=== PATIENT | female | born 1960 | race Hispanic/Latino ===

== ENCOUNTER 2017-08-04 06:32 | Emergency (ER) | payer BC ==
[2017-08-04 06:42] VITALS: BMI 20.4
[2017-08-04] MEDS ORDERED: Sodium Chloride 0.9% 1,000 ML IV STA (07:22)
--- NOTE | 2017-08-04 07:28 | ED PDOC ---
HPI: Headache Time Seen by Provider: 08/04/17 07:10 Chief Complaint (Nursing): Headache History Per: Patient Onset/Duration Of Symptoms: Days (10) Current Symptoms Are (Timing): Still Present Severity: Moderate Pain Scale Rating Of: 5 Quality: Aching Preceeding Symptoms: Known Migraine Symptoms Associated Symptoms: Photophobia, Nausea Additional Complaint(s): Post headache x 10 days assoc with nausea and photophobia. Denies trauma or fever. H/o migraine. No improvement with Imitrex and toradol. Seen [facility] last week with no improvement Past Medical History Vital Signs: Last Vital Signs Temp 98.3 F 08/04/17 06:54 Pulse 84 08/04/17 06:54 Resp 16 08/04/17 06:54 BP 122/74 08/04/17 06:54 Pulse Ox 98 08/04/17 06:54 - Medical History PMH: Migraine - Family History Family History: States: Unknown Family Hx - Home Medications Home Medications: Ambulatory Orders Medication Instructions Recorded Naproxen [Naprosyn] 500 mg PO Q12H #20 tab 08/04/17 - Allergies Allergies/Adverse Reactions: Allergies Allergy/AdvReac Type Severity Reaction Status Date / Time Penicillins Allergy ANAPHYLAXIS Verified 08/04/17 07:00 Review of Systems ROS Statement: Except As Marked, All Systems Reviewed And Found Negative Gastrointestinal: Positive for: Nausea Neurological: Positive for: Headache Physical Exam - Reviewed Nursing Documentation Reviewed: Yes Vital Signs Reviewed: Yes - Physical Exam Appears: Positive for: Non-toxic, No Acute Distress Head Exam: Positive for: ATRAUMATIC, NORMAL INSPECTION, NORMOCEPHALIC Skin: Positive for: Normal Color, Warm, DRY Eye Exam: Positive for: EOMI, Normal appearance, PERRL ENT: Positive for: Normal ENT Inspection Neck: Positive for: Normal, Painless ROM Cardiovascular/Chest: Positive for: Regular Rate, Rhythm Respiratory: Positive for: CNT, Normal Breath Sounds Gastrointestinal/Abdominal: Positive for: Normal Exam, Soft Back: Positive for: Normal Inspection Extremity: Positive for: Normal ROM Neurologic/Psych: Positive for: Alert, Oriented. Negative for: Motor/Sensory Deficits - Laboratory Results Result Diagrams: 08/04/17 07:58 08/04/17 07:58 - ECG O2 Sat by Pulse Oximetry: 98 - Progress Re-evaluation Time: 10:25 Condition: Improved Disposition - Clinical Impression Clinical Impression: Migraine - Patient ED Disposition Is Patient to be Admitted: No - Disposition Referrals: He Dixon MD [Medical Doctor] - Disposition: Routine/Home Disposition Time: 10:26 Condition: FAIR Prescriptions: Naproxen [Naprosyn] 500 mg PO Q12H #20 tab Instructions: Migraine Headache (DC) Forms: [facility] (Hungarian)
[2017-08-04 08:01] LABS: BASO % 0.2 % (0.0-2.0); EOS % 0.1 % (0.0-4.0); HEMOGLOBIN 14.2 g/dL (12.0-16.0); LYMPH # 2.9 K/uL (1.0-4.3); LYMPH % 23.7 % (20.0-40.0); MEAN CELL VOLUME 93.9 fl (81.0-99.0); MEAN CORPUSCULAR HEMOGLOBIN 31.1 pg (27.0-31.0); MEAN CORPUSCULAR HGB CONC 33.2 g/dL (33.0-37.0); MEAN PLATELET VOLUME 8.8 fl (7.2-11.7); MONO # 0.8 K/uL (0.0-0.8); MONO % 6.8 % (0.0-10.0); NEUT # 8.4 K/uL (1.8-7.0); NEUT % 69.2 % (50.0-75.0); NRBC % 0.1 % (0.0-0.0); RBC 4.55 Mil/uL (3.80-5.20); RED CELL DISTRIBUTION WIDTH 13.9 % (11.5-14.5); WHITE BLOOD COUNT 12.1 K/uL (4.8-10.8)
[2017-08-04 08:11] LABS: ALB/GLOB RATIO 1.3 (1.0-2.1); ALBUMIN 4.5 g/dL (3.5-5.0); ALT/SGPT 34 U/L (9-52); AST/SGOT 30 U/L (14-36); BLOOD UREA NITROGEN 19 mg/dl (7-17); CALCIUM 9.1 mg/dL (8.4-10.2); GFR AFRICAN-AMERICAN > 60; GFR NON-AFRICAN AMERICAN > 60
[2017-08-04] MEDS ORDERED: Potassium Chloride 20 mEq ER Tab PO ONE ×2 (08:20→09:43)
--- NOTE | 2017-08-04 08:32 | CT ---
PROCEDURE: CT HEAD WITHOUT CONTRAST. HISTORY: r/o bleed COMPARISON: None available. TECHNIQUE: Axial computed tomography images were obtained through the head/brain without intravenous contrast. Radiation dose: Total exam DLP = 705.53 mGy-cm. This CT exam was performed using one or more of the following dose reduction techniques: Automated exposure control, adjustment of the mA and/or kV according to patient size, and/or use of iterative reconstruction technique. FINDINGS: HEMORRHAGE: No intracranial hemorrhage. BRAIN: No mass effect or edema. No atrophy or chronic microvascular ischemic changes. VENTRICLES: Unremarkable. No hydrocephalus. CALVARIUM: Unremarkable. PARANASAL SINUSES: Unremarkable as visualized. No significant inflammatory changes. MASTOID AIR CELLS: Unremarkable as visualized. No inflammatory changes. OTHER FINDINGS: None. IMPRESSION: Normal CT of the Head. No acute intracranial hemorrhage.
[2017-08-04 10:41] VITALS: BP 128/70; PULSE 73; RESP 18; TEMP 98.5; O2SAT 97
== END 2017-08-04 10:42 | disposition home or self-care (01) ==
LOC: H.ER 06:32
DX: G43.909 Migraine, unspecified, not intractable, without status migrainosus (principal); Z88.0 Allergy status to penicillin
CPT/HCPCS: 70450; 80053; 85025; 96372; 96374; 96375; 99285; J1885; J2405; J3030; J7030

== ENCOUNTER 2017-08-05 09:45 | Emergency (ER) | payer BC ==
[2017-08-05 09:45] VITALS: BMI 20.4
[2017-08-05] MEDS: Sodium Chloride 0.9% 1,000 ML IV STA (10:42)
[2017-08-05] MEDS ORDERED: Alum-Mag Hydrox-Simethicone Susp (30 mL) ONE (10:53)
[2017-08-05 10:59] LABS: BASO % 0.3 % (0.0-2.0); EOS % 0.4 % (0.0-4.0); HEMOGLOBIN 13.7 g/dL (12.0-16.0); LYMPH # 2.9 K/uL (1.0-4.3); MEAN CELL VOLUME 92.6 fl (81.0-99.0); MEAN CORPUSCULAR HEMOGLOBIN 31.7 pg (27.0-31.0); MEAN CORPUSCULAR HGB CONC 34.3 g/dL (33.0-37.0); MEAN PLATELET VOLUME 8.4 fl (7.2-11.7); MONO # 0.6 K/uL (0.0-0.8); MONO % 5.6 % (0.0-10.0); NEUT # 7.1 K/uL (1.8-7.0); NEUT % 66.7 % (50.0-75.0); RBC 4.3 Mil/uL (3.80-5.20); RED CELL DISTRIBUTION WIDTH 13.9 % (11.5-14.5); WHITE BLOOD COUNT 10.6 K/uL (4.8-10.8)
[2017-08-05] MEDS: Atrop/Hyos/Scop/PhenoB Elixir PO STA (11:09)
[2017-08-05] MEDS: Alum-Mag Hydrox-Simethicone Susp (30 mL) PO STA (11:10)
[2017-08-05 11:16] LABS: ALB/GLOB RATIO 1.3 (1.0-2.1); ALT/SGPT 30 U/L (9-52); AST/SGOT 30 U/L (14-36); BLOOD UREA NITROGEN 13 mg/dl (7-17); GFR AFRICAN-AMERICAN > 60; GFR NON-AFRICAN AMERICAN > 60
--- NOTE | 2017-08-05 12:53 | ED PDOC ---
HPI: Abdomen <Elias Hinkle III - Last Filed: 08/05/17 15:03> Chief Complaint (Provider): Epigastric abdominal pain since this morning History Per: Patient History/Exam Limitations: no limitations Onset/Duration Of Symptoms: Days Outside of [place] travel?: No Current Symptoms Are (Timing): Still Present Location Of Pain/Discomfort: Epigastric Quality Of Discomfort: Burning Associated Symptoms: denies: Fever, Chills, Nausea, Vomiting, Loss Of Appetite Exacerbating Factors: None Alleviating Factors: None <Nimco Browning - Last Filed: 08/05/17 15:11> Time Seen by Provider: 08/05/17 10:13 Chief Complaint (Nursing): Abdominal Pain Additional Complaint(s): 57 yo female with history of migraine and gastric ulcer presents with epigastric pain after taking naproxen last night. Pt was seen in ER last night for migraine. Pt states when she left she was feeling better. Pt states she was told to take the naproxen and zofran before bed even is she was not having headache. Pt states she woke up with epigastric burning. PT states the last few days she has been having some discomfort. Pt states it is not as bad as when she was diagnosed with gastric ulcer. Pt reports light brown stool. Pt states she does not have GI doctor any more. Pt denies fever/chills. Pt states her migraine also returned this morning and is the same as when she was in the ER yesterday. (Nimco Browning) Past Medical History <Elias Hinkle III - Last Filed: 08/05/17 15:03> Reviewed: Historical Data, Nursing Documentation, Vital Signs - Medical History PMH: Migraine Denies: Chronic Kidney Disease - Surgical History Surgical History: No Surg Hx - Family History Family History: States: Unknown Family Hx - Living Arrangements Living Arrangements: With Family - Social History Current smoker - smoking cessation education provided: No <Nimco Browning - Last Filed: 08/05/17 15:11> Vital Signs: Last Vital Signs Temp 97.9 F 08/05/17 15:08 Pulse 76 08/05/17 15:08 Resp 17 08/05/17 15:08 BP 119/67 08/05/17 15:08 Pulse Ox 100 08/05/17 15:08 - Home Medications Home Medications: Ambulatory Orders Medication Instructions Recorded Naproxen [Naprosyn] 500 mg PO Q12H #20 tab 08/04/17 Ondansetron [Zofran] 4 mg PO Q8H #10 tab 08/04/17 Metoclopramide [Reglan] 10 mg PO Q8 PRN #8 tab 08/05/17 - Allergies Allergies/Adverse Reactions: Allergies Allergy/AdvReac Type Severity Reaction Status Date / Time Penicillins Allergy ANAPHYLAXIS Verified 08/04/17 07:00 Review of Systems ROS Statement: Except As Marked, All Systems Reviewed And Found Negative Constitutional: Negative for: Fever, Chills Gastrointestinal: Positive for: Abdominal Pain. Negative for: Nausea, Vomiting , Diarrhea Neurological: Positive for: Headache <Nimco Browning - Last Filed: 08/05/17 15:11> - Laboratory Results Result Diagrams: 08/05/17 10:51 08/05/17 10:51 <Elias Hinkle III - Last Filed: 08/05/17 15:03> - Laboratory Results Result Diagrams: 08/05/17 10:51 08/05/17 10:51 - ECG O2 Sat by Pulse Oximetry: 97 <Nimco Browning - Last Filed: 08/05/17 15:11> Medical Decision Making <Elias Hinkle III - Last Filed: 08/05/17 15:03> <Nimco Browning - Last Filed: 08/05/17 15:11> Medical Decision Making: pt seen and examined by MD Long discussion on risks/benefits of further diagnostics including MRI/CTA/LP States she would like to avoid and trial imitrex one more time. tylenol also ordered and additional IVF. re-eval 3p improved, denies current headache. Risk of LP now > low likelihood of SAH given headache now 9 days, no other neurologic signs, improvement w conservative measures and long history of similar migranes. I called her neurologist Dr Quigley at [facility] to discuss, message left, awaiting callback. She refused MRI without sedation due to claustrophobia and prefers open MRI will arrange w neurologist. 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 She will stay with her friend who is a RN sen. Neuro exam grossly normal on discharge from ED. (Elias Hinkle III) Discussed with Dr. Hinkle. Labs ordered. GI cocktail with decadron and Depakote for migraine. (iNmco Browning) Disposition <Elias Hinkle III - Last Filed: 08/05/17 15:03> - Disposition Disposition Time: 15:01 <Nimco Browning - Last Filed: 08/05/17 15:11> - Clinical Impression Clinical Impression: Migraine - Disposition Referrals: Reji Trejo MD [Staff Provider] - Arnulfo Nelson MD [Staff Provider] - Condition: STABLE Additional Instructions: See neurologist and GI doctor for further testing. Return to ER for any worse or new symptoms. Discuss value of sleep study with your doctor or specialist. Prescriptions: Metoclopramide [Reglan] 10 mg PO Q8 PRN #8 tab PRN Reason: Nausea/Vomiting Instructions: Headache, Adult, Migraine Headaches in Adults Forms: [facility] (Yi)
[2017-08-05] MEDS: Lactated Ringer's 1,000 ML IV ONE (13:48)
[2017-08-05 15:10] VITALS: BP 119/67; PULSE 76; RESP 17; TEMP 97.9
[2017-08-05 15:12] VITALS: O2SAT 97
== END 2017-08-05 15:08 | disposition home or self-care (01) ==
LOC: H.ER 09:45
DX: G43.909 Migraine, unspecified, not intractable, without status migrainosus (principal); R10.13 Epigastric pain; Z88.0 Allergy status to penicillin
CPT/HCPCS: 80053; 83690; 85025; 96372; 96374; 96375; 99283; C9113; J1100; J1885; J3030; J7030; J7120

== ENCOUNTER 2017-08-12 17:18 | Observation (INO) | payer BC ==
[2017-08-12 17:18] VITALS: BMI 20.4
[2017-08-12] MEDS ORDERED: Sodium Chloride 0.9% 1,000 ML IV STA (18:31)
--- NOTE | 2017-08-12 18:39 | ED PDOC ---
HPI: Headache Time Seen by Provider: 08/12/17 18:19 Chief Complaint (Nursing): Abdominal Pain History Per: Patient Onset/Duration Of Symptoms: Persistent Current Symptoms Are (Timing): Intermittent Episodes Severity: Moderate Preceeding Symptoms: Known Migraine Symptoms. denies: Visual Disturbances Associated Symptoms: Nausea. denies: Photophobia, Blurred Vision Additional Complaint(s): Recurring episodes of headaches improves with tx in ED but recurs subsequently. Has been seen by neurologists and has been tx'ed with multiple medications. Now c/o epigastric pain assoc with nausea. No vomiting but decreased apatite. Denies fever, or head injury. No peripheral focal weakness. Past Medical History Vital Signs: Last Vital Signs Temp 97.1 F L 08/12/17 18:26 Pulse 66 08/12/17 18:26 Resp 17 08/12/17 18:26 BP 124/71 08/12/17 18:26 Pulse Ox 100 08/12/17 18:26 - Medical History PMH: Migraine Denies: Chronic Kidney Disease - Family History Family History: States: Unknown Family Hx - Home Medications Home Medications: Ambulatory Orders Medication Instructions Recorded Naproxen [Naprosyn] 500 mg PO Q12H #20 tab 08/04/17 Ondansetron [Zofran] 4 mg PO Q8H #10 tab 08/04/17 Metoclopramide [Reglan] 10 mg PO Q8 PRN #8 tab 08/05/17 - Allergies Allergies/Adverse Reactions: Allergies Allergy/AdvReac Type Severity Reaction Status Date / Time Penicillins Allergy ANAPHYLAXIS Verified 08/04/17 07:00 Review of Systems Constitutional: Positive for: Weight loss. Negative for: Fever Eyes: Negative for: Vision Change Gastrointestinal: Positive for: Nausea, Abdominal Pain Musculoskeletal: Negative for: Neck Pain Neurological: Positive for: Headache. Negative for: Weakness, Numbness Physical Exam - Physical Exam Appears: Positive for: Non-toxic, No Acute Distress Skin: Positive for: Normal Color, Warm, DRY Eye Exam: Positive for: Normal appearance, EOMI Neck: Positive for: Normal, Painless ROM, Supple Gastrointestinal/Abdominal: Positive for: Bowel Sounds, Soft, Tenderness (Mild epigastric) Neurologic/Psych: Positive for: Alert, Oriented. Negative for: Motor/Sensory Deficits - Laboratory Results Result Diagrams: 08/12/17 19:00 08/12/17 19:00 - ECG O2 Sat by Pulse Oximetry: 100 Disposition - Clinical Impression Clinical Impression: Intractable migraine, Hypokalemia - Patient ED Disposition Is Patient to be Admitted: Yes - Disposition Disposition Time: 21:06 Condition: FAIR Forms: [facility] (Uzbek) - Pt Status Changed To: Hospital Disposition Of: Observation - POA Present On Arrival: None
[2017-08-12] MEDS ORDERED: Famotidine 20mg/50ml 20 MG/50 ML BAG IVPB ONE (18:50)
[2017-08-12 19:12] LABS: BASO # 0.1 K/uL (0.0-0.2); BASO % 0.6 % (0.0-2.0); EOS # 0.1 K/uL (0.0-0.7); EOS % 0.9 % (0.0-4.0); HEMOGLOBIN 14.1 g/dL (12.0-16.0); LYMPH # 3.1 K/uL (1.0-4.3); LYMPH % 27.3 % (20.0-40.0); MEAN CELL VOLUME 93.9 fl (81.0-99.0); MEAN CORPUSCULAR HEMOGLOBIN 31.4 pg (27.0-31.0); MEAN CORPUSCULAR HGB CONC 33.4 g/dL (33.0-37.0); MEAN PLATELET VOLUME 8.3 fl (7.2-11.7); MONO # 0.9 K/uL (0.0-0.8); MONO % 8.1 % (0.0-10.0); NEUT # 7.2 K/uL (1.8-7.0); NEUT % 63.1 % (50.0-75.0); RBC 4.49 Mil/uL (3.80-5.20); RED CELL DISTRIBUTION WIDTH 14.2 % (11.5-14.5); WHITE BLOOD COUNT 11.5 K/uL (4.8-10.8)
[2017-08-12 19:31] LABS: ALB/GLOB RATIO 1.5 (1.0-2.1); ALBUMIN 4.4 g/dL (3.5-5.0); ALT/SGPT 39 U/L (9-52); AST/SGOT 22 U/L (14-36); BLOOD UREA NITROGEN 7 mg/dl (7-17); CALCIUM 8.9 mg/dL (8.4-10.2); GFR AFRICAN-AMERICAN > 60; GFR NON-AFRICAN AMERICAN > 60
[2017-08-12] MEDS ORDERED: Potassium Chloride 20 mEq ER Tab PO ONE ×2 (20:49→21:04)
[2017-08-12] MEDS ORDERED: Apap-Butalbital-Caffeine 325-50-40mg Tab PO PRN (23:26)
[2017-08-13] MEDS: Alum-Mag Hydrox-Simethicone Susp (30 mL) PO PRN ×2 (00:25→04:37)
[2017-08-13 05:47] LABS: HEMOGLOBIN 13.2 g/dL (12.0-16.0); MEAN CELL VOLUME 94.6 fl (81.0-99.0); MEAN CORPUSCULAR HEMOGLOBIN 31.5 pg (27.0-31.0); MEAN CORPUSCULAR HGB CONC 33.3 g/dL (33.0-37.0); RBC 4.2 Mil/uL (3.80-5.20); WHITE BLOOD COUNT 10.5 K/uL (4.8-10.8)
[2017-08-13 06:07] LABS: LDL CHOLESTEROL 61 mg/dL (0-129)
[2017-08-13 06:12] LABS: T4 11.7 ug/dl (5.5-11.0)
[2017-08-13 06:36] LABS: ALB/GLOB RATIO 1.4 (1.0-2.1); ALBUMIN 3.8 g/dL (3.5-5.0); ALT/SGPT 38 U/L (9-52); AST/SGOT 20 U/L (14-36); BLOOD UREA NITROGEN 7 mg/dl (7-17); CALCIUM 8.2 mg/dL (8.4-10.2); GFR AFRICAN-AMERICAN > 60; GFR NON-AFRICAN AMERICAN > 60; HDL CHOLESTEROL 52 MG/DL (30-70)
[2017-08-13] MEDS ORDERED: Pneumococcal 23-Valent Vaccine IM ONE (07:00)
[2017-08-13] MEDS ORDERED: Magnesium Sulfate 2 gm/50 ml 2 GM/50 ML BAG IVPB ONE (08:59)
[2017-08-13] MEDS ORDERED: Dexamethasone 10 MG in Dextrose 5% In Water 50 ML IV ONE (09:00)
[2017-08-13] MEDS ORDERED: Valproate 500 MG in Sodium Chloride 0.9% 100 ML IVPB ONE (09:00)
--- NOTE | 2017-08-13 09:45 | CARD ---
APPROVED REPORT EKG Measurement Heart [id number] <Conclusion> Sinus rhythm with short OR Otherwise normal ECG
--- NOTE | 2017-08-13 13:18 | CP.PCM.CON ---
<Mile Maier - Last Filed: 08/13/17 13:14> History of Present Illness - History of Present Illness History of Present Illness: Gastroenterology Fellow/PGY5 Consult Note for Dr. Soto 57 year old female with PMH of Lobular carcinoma in situ, migraines (20 years) on NSAIDs/triptans, and PUD thirty years ago presenting with epigastric pain. Patient notes onset of epigastric pain described as a dull ache and nagging sensation on 08/04/17 after taking two days of medrol ulises prescribed for persistent migraine despite use of triptan, naproxen, and extra strength tylenol since 07/28/17. Associated loss of appetite with six pound unintentional weight loss since 07/28/17. Denies nausea, vomiting, hematemesis, dysphagia, odynophagia, heartburn, indigestion, acid reflux, bloating, diarrhea, constipation, melena, or hematochezia. Patient presented to ER on 08/04 and 08/05 with no relief from reglan prescribed. Patient notes mild relief for the last week with use of Prilosec BID (before breakfast and dinner) and carafate TID prescribe by her neurologist. Epigastric pain rated at 5/10 from 8/10 since taking outpatient anti-secretory and carafate. Patient deniesssss gastrointestional symptoms prior to migraine onset and use of multiple medications for attempted relief since 07/28/17. Similar symptoms 30 years ago relieved with carafate after endorsed diagnosis of gastric ulcer on EGD. Colonoscopy in 2016 endorsed to show polyps with recommended five year surveillance. Family History: denies stomach cancer, colon cancer Social History: denies tobacco or illicit drug use, prior vicodin abuse, rare alcohol use Surgical History: myomectomy, breast biopsies and excisions Review of Systems - Review of Systems Review of Systems: 12-point review of systems negative except for as above Past Patient History - Past Medical History & Family History Past Medical History?: Yes - Past Social History Smoking Status: Never Smoked - CARDIAC Hx Cardiac Disorders: No - PULMONARY Hx Respiratory Disorders: Yes Hx Asthma: Yes ("SEASONAL") - NEUROLOGICAL Hx Neurological Disorder: Yes Hx Migraine: Yes - HEENT Hx HEENT Problems: No - RENAL Hx Chronic Kidney Disease: No - ENDOCRINE/METABOLIC Hx Endocrine Disorders: No - HEMATOLOGICAL/ONCOLOGICAL Hx Blood Disorders: No - INTEGUMENTARY Hx Dermatological Problems: No - MUSCULOSKELETAL/RHEUMATOLOGICAL Hx Musculoskeletal Disorders: No Hx Falls: No - GASTROINTESTINAL Hx Gastrointestinal Disorders: No - GENITOURINARY/GYNECOLOGICAL Hx Genitourinary Disorders: No - PSYCHIATRIC Hx Psychophysiologic Disorder: No Hx Substance Use: No - SURGICAL HISTORY Hx Surgeries: Yes Other/Comment: Uterine fibroid removal, Laparotomy, Multiple breast cyst removal - ANESTHESIA Hx Anesthesia: Yes Hx Anesthesia Reactions: No Hx Malignant Hyperthermia: No Meds Allergies/Adverse Reactions: Allergies Allergy/AdvReac Type Severity Reaction Status Date / Time Penicillins Allergy ANAPHYLAXIS Verified 08/04/17 07:00 - Medications Medications: Current Medications Acetaminophen/Butalbital/Caffeine (Fioricet) 1 tab PO Q4 PRN PRN Reason: Headache Last Admin: 08/13/17 00:25 Dose: 1 tab Al Hydrox/Mg Hydrox/Simethicone (Maalox Plus 30 Ml) 30 ml PO Q4 PRN PRN Reason: Indigestion / Heartburn Last Admin: 08/13/17 04:37 Dose: 30 ml Dicyclomine HCl (Bentyl) 20 mg PO TID PRN PRN Reason: Epigastric Pain Last Admin: 08/13/17 00:25 Dose: 20 mg Magnesium Oxide (Mag-Ox) 400 mg PO BID [facility] Ondansetron HCl (Zofran Inj) 4 mg IVP Q4 PRN PRN Reason: Nausea/Vomiting Pantoprazole Sodium (Protonix Inj) 40 mg IVP DAILY FLORENCIO Last Admin: 08/13/17 08:40 Dose: 40 mg Physical Exam - Constitutional Appears: Non-toxic, No Acute Distress - Head Exam Head Exam: ATRAUMATIC, NORMOCEPHALIC - Eye Exam Eye Exam: EOMI, PERRL. absent: Scleral icterus Pupil Exam: PERRL. absent: Miosis, Mydriatic - ENT Exam ENT Exam: Mucous Membranes Moist, Normal Oropharynx - Neck Exam Neck exam: Positive for: Full Rom, Normal Inspection - Respiratory Exam Respiratory Exam: Clear to Auscultation Bilateral. absent: Rales, Rhonchi, Wheezes - Cardiovascular Exam Cardiovascular Exam: RRR, +S1, +S2. absent: Gallop, Rubs - GI/Abdominal Exam GI & Abdominal Exam: Normal Bowel Sounds, Soft, Tenderness. absent: Distended, Firm, Guarding, Organomegaly, Rebound, Rigid Additional comments: epigastric tenderness to palpation - Extremities Exam Extremities exam: Positive for: normal inspection. Negative for: pedal edema - Neurological Exam Neurological exam: Alert, Oriented x3 - Psychiatric Exam Psychiatric exam: Normal Affect, Normal Mood - Skin Skin Exam: Dry, Intact, Normal Color, Warm Results - Vital Signs Recent Vital Signs: Last Vital Signs Temp 98 F 08/13/17 12:27 Pulse 72 08/13/17 12:27 Resp 18 08/13/17 12:27 BP 110/71 08/13/17 12:27 Pulse Ox 97 08/13/17 12:27 - Labs Result Diagrams: 08/13/17 05:33 08/13/17 05:33 Labs: Laboratory Results - last 24 hr 08/12/17 08/12/17 08/13/17 19:00 19:00 05:33 WBC 11.5 H 10.5 RBC 4.49 4.20 Hgb 14.1 13.2 Hct 42.1 39.7 MCV 93.9 94.6 MCH 31.4 H 31.5 H MCHC 33.4 33.3 RDW 14.2 14.0 Plt Count 226 200 MPV 8.3 Neut % (Auto) 63.1 Lymph % (Auto) 27.3 [place] % (Auto) 8.1 Eos % (Auto) 0.9 Baso % (Auto) 0.6 Neut # (Auto) 7.2 H Lymph # (Auto) 3.1 [place] # (Auto) 0.9 H Eos # (Auto) 0.1 Baso # (Auto) 0.1 ESR 10 Sodium 141 Potassium 2.9 L Chloride 103 Carbon Dioxide 27 Anion Gap 14 BUN 7 Creatinine 0.4 L Est GFR ( Amer) > 60 Est GFR (Non-Af Amer) > 60 Random Glucose 101 Calcium 8.9 Total Bilirubin 0.7 AST 22 ALT 39 Alkaline Phosphatase 54 Total Protein 7.3 Albumin 4.4 Globulin 2.9 Albumin/Globulin Ratio 1.5 Triglycerides Cholesterol LDL Cholesterol Direct HDL Cholesterol Thyroxine (T4) TSH 3rd Generation 08/13/17 05:33 WBC RBC Hgb Hct MCV MCH MCHC RDW Plt Count MPV Neut % (Auto) Lymph % (Auto) [place] % (Auto) Eos % (Auto) Baso % (Auto) Neut # (Auto) Lymph # (Auto) [place] # (Auto) Eos # (Auto) Baso # (Auto) ESR Sodium 142 Potassium 3.7 Chloride 107 Carbon Dioxide 27 Anion Gap 12 BUN 7 Creatinine 0.4 L Est GFR ( Amer) > 60 Est GFR (Non-Af Amer) > 60 Random Glucose 91 Calcium 8.2 L Total Bilirubin 0.7 AST 20 ALT 38 Alkaline Phosphatase 43 Total Protein 6.4 Albumin 3.8 Globulin 2.6 Albumin/Globulin Ratio 1.4 Triglycerides 59 Cholesterol 142 LDL Cholesterol Direct 61 HDL Cholesterol 52 Thyroxine (T4) 11.7 H TSH 3rd Generation 1.02 Assessment & Plan - Assessment and Plan (Free Text) Assessment: 57 year old female with PMH of Lobular carcinoma in situ, migraines (20 years) on NSAIDs/triptans, and PUD thirty years ago presenting with epigastric pain. Active treatment of intractable migraine and persistent epigastric pain despite outpatietn anti-secretory/carafate in setting of NSAIDs and steroid use. Similar symptoms 30 years ago relieved with carafate after endorsed diagnosis of gastric ulcer on EGD. Colonoscopy in 2016 endorsed to show polyps with recommended five year surveillance. Plan: -ordered Bentyl and carafate to be given now -increased PPI to BID -continue Bentyl and Maalox PRN -avoid NSAIDs -neurology and primary team managing migraine therapy -diet as tolerated with supplemental shakes -NPO after midnight -plan for EGD tomorrow to rule out PUD and/or other underlying pathology <Ander Camacho - Last Filed: 08/14/17 08:28> Meds - Medications Medications: Current Medications Acetaminophen/Butalbital/Caffeine (Fioricet) 1 tab PO Q4 PRN PRN Reason: Headache Last Admin: 08/13/17 00:25 Dose: 1 tab Al Hydrox/Mg Hydrox/Simethicone (Maalox Plus 30 Ml) 30 ml PO Q4 PRN PRN Reason: Indigestion / Heartburn Last Admin: 08/13/17 04:37 Dose: 30 ml Dicyclomine HCl (Bentyl) 20 mg PO TID PRN PRN Reason: Epigastric Pain Last Admin: 08/13/17 00:25 Dose: 20 mg Hydromorphone HCl (Dilaudid) 1 mg IVP Q4 PRN PRN Reason: Pain, severe (8-10) Last Admin: 08/14/17 05:38 Dose: 1 mg Magnesium Oxide (Mag-Ox) 400 mg PO BID [facility] Last Admin: 08/13/17 17:37 Dose: 400 mg Ondansetron HCl (Zofran Inj) 4 mg IVP Q4 PRN PRN Reason: Nausea/Vomiting Pantoprazole Sodium (Protonix Inj) 40 mg IVP BID [facility] Last Admin: 08/13/17 17:36 Dose: 40 mg Results - Vital Signs Recent Vital Signs: Last Vital Signs Temp 98.2 F 08/14/17 04:58 Pulse 77 08/14/17 04:58 Resp 18 08/14/17 04:58 BP 102/68 08/14/17 04:58 Pulse Ox 97 08/14/17 04:58 - Labs Result Diagrams: 08/13/17 05:33 08/13/17 05:33 Assessment & Plan (1) Abdominal pain, acute, epigastric Status: Acute Priority: High (2) Intractable migraine Status: Acute Priority: High (3) Hypokalemia Status: Acute Priority: High
--- NOTE | 2017-08-13 13:30 | CP.PCM.HP ---
History of Present Illness - History of Present Illness History of Present Illness: CC: Epigastric pain 57 y/o F, Hx Migraine x 20 yrs, PUD 30 yrs ago, came to [facility] [place] to be evaluated for increased persistent abdominal pain, epigastric area, that began 9 days [employer], described as constant, dull, ache, moderate to severe intensity 8:10 , associated to nausea and also intractable headache, pressure type, moderate intensity 6:10. Pt on NSAIDs, Triptans at home with no relief. Worsening symptoms: Poor appetite, weigt loss, found with Hypokalemia. Aggravated factor: Movements/exercise/food. Pt denied: Fever, chills, v/d, syncope, dizziness, visual disturbances, neck pain, weakness, SOB, cough, urinary symptoms, sick contact, recent travel out of [facility]. EKG: Sinus rhythm with short [place]. Present on Admission - Present on Admission Any Indicators Present on Admission: No Review of Systems - Constitutional Constitutional: Headache, Other (weigh loss) - EENT Eyes: Requires Corrective Lenses Ears: Other (negative) Nose/Mouth/Throat: Other (negative) - Cardiovascular Cardiovascular: Other (negative) - Respiratory Respiratory: Other (negative) - Gastrointestinal Gastrointestinal: Abdominal Pain (epigastric area), Nausea - Genitourinary Genitourinary: Other (negative) - Musculoskeletal Musculoskeletal: Other (negative) - Integumentary Integumentary: Other (negative) - Neurological Neurological: Headaches - Psychiatric Psychiatric: Other (negative) - Endocrine Endocrine: Other (negative) - Hematologic/Lymphatic Hematologic: Other (negative) Past Patient History - Past Medical History & Family History Past Medical History?: Yes Pertinent Family History: Unknown - Past Social History Smoking Status: Never Smoked Alcohol: None Drugs: Denies Home Situation {Lives}: With Family - CARDIAC Hx Cardiac Disorders: No - PULMONARY Hx Respiratory Disorders: Yes Hx Asthma: Yes ("SEASONAL") - NEUROLOGICAL Hx Neurological Disorder: Yes Hx Migraine: Yes - HEENT Hx HEENT Problems: No - RENAL Hx Chronic Kidney Disease: No - ENDOCRINE/METABOLIC Hx Endocrine Disorders: No - HEMATOLOGICAL/ONCOLOGICAL Hx Blood Disorders: No - INTEGUMENTARY Hx Dermatological Problems: No - MUSCULOSKELETAL/RHEUMATOLOGICAL Hx Musculoskeletal Disorders: No Hx Falls: No - GASTROINTESTINAL Hx Gastrointestinal Disorders: Yes Hx Gastritis: Yes Hx Ulcer: Yes (PUD) - GENITOURINARY/GYNECOLOGICAL Hx Genitourinary Disorders: No - PSYCHIATRIC Hx Psychophysiologic Disorder: No Hx Substance Use: No - SURGICAL HISTORY Hx Surgeries: Yes Other/Comment: Uterine fibroid removal, Laparotomy, Multiple breast cyst removal - ANESTHESIA Hx Anesthesia: Yes Hx Anesthesia Reactions: No Hx Malignant Hyperthermia: No Meds Allergies/Adverse Reactions: Allergies Allergy/AdvReac Type Severity Reaction Status Date / Time Penicillins Allergy ANAPHYLAXIS Verified 08/04/17 07:00 Physical Exam - Constitutional Appears: No Acute Distress - Head Exam Head Exam: NORMAL INSPECTION - Eye Exam Eye Exam: PERRL - ENT Exam ENT Exam: Normal Exam - Neck Exam Neck exam: Positive for: Normal Inspection - Respiratory Exam Respiratory Exam: Clear to Auscultation Bilateral - Cardiovascular Exam Cardiovascular Exam: REGULAR RHYTHM - GI/Abdominal Exam GI & Abdominal Exam: Normal Bowel Sounds, Soft, Tenderness (mild epigastric to palpation). absent: Distended, Guarding, Rebound - Extremities Exam Extremities exam: Positive for: normal inspection - Back Exam Back exam: NORMAL INSPECTION - Neurological Exam Neurological exam: Alert, Oriented x3 Additional comments: No motor/sensory deficit. - Psychiatric Exam Psychiatric exam: Normal Affect, Normal Mood - Skin Skin Exam: Warm Results - Vital Signs Recent Vital Signs: Last Vital Signs Temp 98 F 08/13/17 12:27 Pulse 72 08/13/17 12:27 Resp 18 08/13/17 12:27 BP 110/71 08/13/17 12:27 Pulse Ox 97 08/13/17 12:27 reviewed Christine - Labs Result Diagrams: 08/13/17 05:33 08/13/17 05:33 Labs: Laboratory Results - last 24 hr 08/12/17 08/12/17 08/13/17 19:00 19:00 05:33 WBC 11.5 H 10.5 RBC 4.49 4.20 Hgb 14.1 13.2 Hct 42.1 39.7 MCV 93.9 94.6 MCH 31.4 H 31.5 H MCHC 33.4 33.3 RDW 14.2 14.0 Plt Count 226 200 MPV 8.3 Neut % (Auto) 63.1 Lymph % (Auto) 27.3 Kinney % (Auto) 8.1 Eos % (Auto) 0.9 Baso % (Auto) 0.6 Neut # (Auto) 7.2 H Lymph # (Auto) 3.1 Kinney # (Auto) 0.9 H Eos # (Auto) 0.1 Baso # (Auto) 0.1 ESR 10 Sodium 141 Potassium 2.9 L Chloride 103 Carbon Dioxide 27 Anion Gap 14 BUN 7 Creatinine 0.4 L Est GFR ( Amer) > 60 Est GFR (Non-Af Amer) > 60 Random Glucose 101 Calcium 8.9 Total Bilirubin 0.7 AST 22 ALT 39 Alkaline Phosphatase 54 Total Protein 7.3 Albumin 4.4 Globulin 2.9 Albumin/Globulin Ratio 1.5 Triglycerides Cholesterol LDL Cholesterol Direct HDL Cholesterol Thyroxine (T4) TSH 3rd Generation 08/13/17 05:33 WBC RBC Hgb Hct MCV MCH MCHC RDW Plt Count MPV Neut % (Auto) Lymph % (Auto) Kinney % (Auto) Eos % (Auto) Baso % (Auto) Neut # (Auto) Lymph # (Auto) Kinney # (Auto) Eos # (Auto) Baso # (Auto) ESR Sodium 142 Potassium 3.7 Chloride 107 Carbon Dioxide 27 Anion Gap 12 BUN 7 Creatinine 0.4 L Est GFR ( Amer) > 60 Est GFR (Non-Af Amer) > 60 Random Glucose 91 Calcium 8.2 L Total Bilirubin 0.7 AST 20 ALT 38 Alkaline Phosphatase 43 Total Protein 6.4 Albumin 3.8 Globulin 2.6 Albumin/Globulin Ratio 1.4 Triglycerides 59 Cholesterol 142 LDL Cholesterol Direct 61 HDL Cholesterol 52 Thyroxine (T4) 11.7 H TSH 3rd Generation 1.02 reviewed J.P. - EKG Data EKG comments: reviewed J.P. Assessment & Plan (1) Abdominal pain, acute, epigastric Status: Acute Priority: High (2) Intractable migraine Status: Acute Priority: High (3) Hypokalemia Status: Acute Priority: High - Assessment and Plan (Free Text) Plan: F/U Brain MRI, continue Bentyl, maalox, keep in NPO diet, plan for EGD tomorrow , GI consult appreciated, Neuro consult. - Date & Time Date: 08/13/17 Time: 13:40
--- NOTE | 2017-08-13 13:49 | CP.PCM.CON ---
History of Present Illness - History of Present Illness History of Present Illness: Mrs. Smith is a 57-year-old woman with a past medical history of lobular carcinoma in situ, migraine headaches (acute attacks are treated with Sumatriptan and Reglan), who presented to the ED yesterday with epigastric pain as well as persistent headache that appears to be refractory to her usual medications for the last two weeks. She states that she went to see her neurologist and was prescribed naritriptan to take twice daily for 4 days. Since then, the headache has changed in quality and now involves the frontal region and feels like a pulling type of pain. She has aversion to bright lights , loud noises and strong smells. The pain is currently a 5/10 after receiving depakote and decadron. Magnesium sulfate caused injection site burning and was stopped. Review of Systems - Review of Systems All systems: reviewed and no additional remarkable complaints except Past Patient History - Past Medical History & Family History Past Medical History?: Yes - Past Social History Smoking Status: Never Smoked - CARDIAC Hx Cardiac Disorders: No - PULMONARY Hx Respiratory Disorders: Yes Hx Asthma: Yes ("SEASONAL") - NEUROLOGICAL Hx Neurological Disorder: Yes Hx Migraine: Yes - HEENT Hx HEENT Problems: No - RENAL Hx Chronic Kidney Disease: No - ENDOCRINE/METABOLIC Hx Endocrine Disorders: No - HEMATOLOGICAL/ONCOLOGICAL Hx Blood Disorders: No - INTEGUMENTARY Hx Dermatological Problems: No - MUSCULOSKELETAL/RHEUMATOLOGICAL Hx Musculoskeletal Disorders: No Hx Falls: No - GASTROINTESTINAL Hx Gastrointestinal Disorders: No - GENITOURINARY/GYNECOLOGICAL Hx Genitourinary Disorders: No - PSYCHIATRIC Hx Psychophysiologic Disorder: No Hx Substance Use: No - SURGICAL HISTORY Hx Surgeries: Yes Other/Comment: Uterine fibroid removal, Laparotomy, Multiple breast cyst removal - ANESTHESIA Hx Anesthesia: Yes Hx Anesthesia Reactions: No Hx Malignant Hyperthermia: No Meds Allergies/Adverse Reactions: Allergies Allergy/AdvReac Type Severity Reaction Status Date / Time Penicillins Allergy ANAPHYLAXIS Verified 08/04/17 07:00 - Medications Medications: Current Medications Acetaminophen/Butalbital/Caffeine (Fioricet) 1 tab PO Q4 PRN PRN Reason: Headache Last Admin: 08/13/17 00:25 Dose: 1 tab Al Hydrox/Mg Hydrox/Simethicone (Maalox Plus 30 Ml) 30 ml PO Q4 PRN PRN Reason: Indigestion / Heartburn Last Admin: 08/13/17 04:37 Dose: 30 ml Dicyclomine HCl (Bentyl) 20 mg PO TID PRN PRN Reason: Epigastric Pain Last Admin: 08/13/17 00:25 Dose: 20 mg Magnesium Oxide (Mag-Ox) 400 mg PO BID [facility] Ondansetron HCl (Zofran Inj) 4 mg IVP Q4 PRN PRN Reason: Nausea/Vomiting Pantoprazole Sodium (Protonix Inj) 40 mg IVP DAILY [facility] Last Admin: 08/13/17 08:40 Dose: 40 mg Physical Exam - Neurological Exam Neurological exam: Alert, CN II-XII Intact, Normal Gait, Oriented x3, Reflexes Normal Results - Vital Signs Recent Vital Signs: Last Vital Signs Temp 98 F 08/13/17 12:27 Pulse 72 08/13/17 12:27 Resp 18 08/13/17 12:27 BP 110/71 08/13/17 12:27 Pulse Ox 97 08/13/17 12:27 - Labs Result Diagrams: 08/13/17 05:33 08/13/17 05:33 Labs: Laboratory Results - last 24 hr 08/12/17 08/12/17 08/13/17 19:00 19:00 05:33 WBC 11.5 H 10.5 RBC 4.49 4.20 Hgb 14.1 13.2 Hct 42.1 39.7 MCV 93.9 94.6 MCH 31.4 H 31.5 H MCHC 33.4 33.3 RDW 14.2 14.0 Plt Count 226 200 MPV 8.3 Neut % (Auto) 63.1 Lymph % (Auto) 27.3 Hand % (Auto) 8.1 Eos % (Auto) 0.9 Baso % (Auto) 0.6 Neut # (Auto) 7.2 H Lymph # (Auto) 3.1 Hand # (Auto) 0.9 H Eos # (Auto) 0.1 Baso # (Auto) 0.1 ESR 10 Sodium 141 Potassium 2.9 L Chloride 103 Carbon Dioxide 27 Anion Gap 14 BUN 7 Creatinine 0.4 L Est GFR ( Amer) > 60 Est GFR (Non-Af Amer) > 60 Random Glucose 101 Calcium 8.9 Total Bilirubin 0.7 AST 22 ALT 39 Alkaline Phosphatase 54 Total Protein 7.3 Albumin 4.4 Globulin 2.9 Albumin/Globulin Ratio 1.5 Triglycerides Cholesterol LDL Cholesterol Direct HDL Cholesterol Thyroxine (T4) TSH 3rd Generation 08/13/17 05:33 WBC RBC Hgb Hct MCV MCH MCHC RDW Plt Count MPV Neut % (Auto) Lymph % (Auto) Hand % (Auto) Eos % (Auto) Baso % (Auto) Neut # (Auto) Lymph # (Auto) Hand # (Auto) Eos # (Auto) Baso # (Auto) ESR Sodium 142 Potassium 3.7 Chloride 107 Carbon Dioxide 27 Anion Gap 12 BUN 7 Creatinine 0.4 L Est GFR ( Amer) > 60 Est GFR (Non-Af Amer) > 60 Random Glucose 91 Calcium 8.2 L Total Bilirubin 0.7 AST 20 ALT 38 Alkaline Phosphatase 43 Total Protein 6.4 Albumin 3.8 Globulin 2.6 Albumin/Globulin Ratio 1.4 Triglycerides 59 Cholesterol 142 LDL Cholesterol Direct 61 HDL Cholesterol 52 Thyroxine (T4) 11.7 H TSH 3rd Generation 1.02 Assessment & Plan (1) Intractable migraine Assessment and Plan: Will give dose of depakote, decadron, magnesium sulfate and wait for effect. If she does not improve after a few hours, and pain is still as severe, we will consider ketamine infusion. I will review MRI brain to rule out vasospasm or underlying pathology from the triptan medication. She may also be suffering from medication overuse headache. Therefor I recommend stopping the other medications for now. They don't seem to be helping. Thank you. Status: Acute Priority: High
[2017-08-13] MEDS ORDERED: Sucralfate 1 gm/10 ml Oral Susp UD PO ONE (13:51)
[2017-08-13] MEDS ORDERED: Gadodiamide 287 MG/ML VIAL (15ML) IV ONE (16:37)
[2017-08-13] MEDS: Magnesium Oxide 400 mg Tab UD PO SCH (17:37)
--- NOTE | 2017-08-13 18:27 | MRI ---
PROCEDURE: MRI BRAIN WITH AND WITHOUT CONTRAST HISTORY: MIGRAINE HEADACHE COMPARISON: None. TECHNIQUE: Multiplanar, multisequence MR images of the brain were obtained with (Omniscan 12 cc) and without intravenous contrast enhancement. FINDINGS: HEMORRHAGE: Multiple areas of diminished primarily long TR signal are appreciated representing hemosiderin primarily in the subcortical space of the left frontal and parietal lobes, minimally at the right frontal lobe and the right cerebellum. 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 Repeat head CT without contrast would be helpful. There is also no corresponding edema in general correspond to these foci and hemorrhagic metastases are not favored. No abnormal enhancement seen to correspond to these foci following gadolinium administration. DWI: No evidence of an acute or early subacute infarction. BRAIN PARENCHYMA: Trace chronic microangiopathy is manifest by limited periventricular long TR hyper intensity an occasional foci of similar hyperintensity subcortical in location in and few areas of the bilateral frontal and parietal lobes. There is no mass effect. There is no suspicious extra-axial fluid collection identified exclusive of the right cerebellar hemosiderin deposition, no additional infratentorial findings are identified. ENHANCEMENT: No abnormal intracranial enhancement. VENTRICLES: Unremarkable. No hydrocephalus. CRANIUM: Unremarkable. ORBITS: Grossly unremarkable though the right ovary is obscured by extensive artifact from dental hardware. . PARANASAL SINUSES/MASTOIDS: Clear VASCULAR SYSTEM: Skull base flow voids intact. OTHER FINDINGS: None . IMPRESSION: 1. No abnormal intracranial enhancement, mass effect, hydrocephalus or suspicious extra-axial fluid collection. No cortical edema. No acute or subacute brain infarction identified. 2. 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 3. Limited chronic microangiopathy identified.
[2017-08-14] MEDS ORDERED: HYDROmorphone 0.5 mg/0.5 ml ISec IVP PRN (05:30)
[2017-08-14 08:30] LABS: INR 1.1 (0.9-1.2); PROTHROMBIN TIME 11.8 Seconds (9.8-13.1)
--- NOTE | 2017-08-14 08:48 | CP.PCM.PN ---
Subjective - Date & Time of Evaluation Date of Evaluation: 08/14/17 Time of Evaluation: 08:44 - Subjective Subjective: Ms. Smith was seen and examined at the bedside. She is alert, oriented in all spheres. She denies any headache, dizziness, lightheadedness, but claims of experiencing abdominal pain earlier which dilaudid was given. She is able to follow simple commands and able to ambulate within her room in steady gait. She is very anxious with everything. She is able to verbalize the need to seek psychology help with her anxiety issues. There was no untoward events overnight. Objective - Vital Signs/Intake and Output Vital Signs (last 24 hours): Temp Pulse Resp BP Pulse Ox 97.7 F 69 20 95/59 L 99 08/14/17 08:36 08/14/17 08:36 08/14/17 08:36 08/14/17 08:36 08/14/17 08:36 - Medications Medications: Current Medications Acetaminophen/Butalbital/Caffeine (Fioricet) 1 tab PO Q4 PRN PRN Reason: Headache Last Admin: 08/13/17 00:25 Dose: 1 tab Al Hydrox/Mg Hydrox/Simethicone (Maalox Plus 30 Ml) 30 ml PO Q4 PRN PRN Reason: Indigestion / Heartburn Last Admin: 08/13/17 04:37 Dose: 30 ml Dicyclomine HCl (Bentyl) 20 mg PO TID PRN PRN Reason: Epigastric Pain Last Admin: 08/13/17 00:25 Dose: 20 mg Hydromorphone HCl (Dilaudid) 1 mg IVP Q4 PRN PRN Reason: Pain, severe (8-10) Last Admin: 08/14/17 05:38 Dose: 1 mg Lorazepam (Ativan) 0.5 mg IVP ONCE ONE Stop: 08/14/17 11:01 Magnesium Oxide (Mag-Ox) 400 mg PO BID [facility] Last Admin: 08/13/17 17:37 Dose: 400 mg Ondansetron HCl (Zofran Inj) 4 mg IVP Q4 PRN PRN Reason: Nausea/Vomiting Pantoprazole Sodium (Protonix Inj) 40 mg IVP BID [facility] Last Admin: 08/13/17 17:36 Dose: 40 mg - Labs Labs: 08/13/17 05:33 08/13/17 05:33 PT 11.8 Seconds (9.8-13.1) 08/14/17 08:07 INR 1.1 (0.9-1.2) 08/14/17 08:07 - Constitutional Appears: No Acute Distress - Head Exam Head Exam: NORMAL INSPECTION - Eye Exam Pupil Exam: PERRL - Neurological Exam Neurological Exam: Alert, Awake, Oriented x3 Neuro motor strength exam: Left Upper Extremity: 5, Right Upper Extremity: 5, Left Lower Extremity: 5, Right Lower Extremity: 5 Additional comments: alert, oriented in all spheres, follows simple commands, sensation is intact. Assessment and Plan (1) Intractable migraine Assessment & Plan: Case discussed with Dr. Carbajal, continue all current medical regimen. Pending MRA of the head. Recommend hydration, reduction of stress level, blood pressure control and if MRA of the head is normal, may discharge to home and follow up with her own neurologist or if she wants to follow up with Dr. Carbajal at [address] [facility] [address] [facility] [address], tel. [phone]. Status: Acute
[2017-08-14] MEDS: Magnesium Oxide 400 mg Tab UD PO SCH ×2 (08:58→17:54)
[2017-08-14] MEDS ORDERED: Lactated Ringer's 500 ML IV ONE ×3 (10:25→11:30)
--- NOTE | 2017-08-14 10:35 | MRI ---
PROCEDURE: Magnetic Resonance Angiography Brain HISTORY: possible vasospasm COMPARISON: None available. TECHNIQUE: 3D time of flight MR angiography of the intracranial arteries was performed. Rotating maximum intensity projection images were generated. FINDINGS: INTERNAL CAROTID ARTERIES: Unremarkable. The skull base, petrous, cavernous and supraclinoid segments are bilaterally widely patient. ANTERIOR CEREBRAL ARTERIES: Unremarkable. A1 and A2 segments are widely patent. Smaller distal branches unremarkable, as visualized. MIDDLE CEREBRAL ARTERIES: Unremarkable. M1 and M2 segments are widely patent. Perisylvian branches grossly symmetric. POSTERIOR CIRCULATION: Basilar Artery: Artifactual signal loss is felt to present due to multi slab technique at the mid basilar artery. This is not apparent in source images. Distal Vertebral Arteries: Unremarkable. Posterior Cerebral Arteries: Unremarkable. Posterior Inferior Cerebellar Arteries: Unremarkable. ANEURYSM/ VASCULAR MALFORMATIONS: None. OTHER FINDINGS: None. IMPRESSION: Unremarkable MR angiography of the brain.
[2017-08-14] MEDS ORDERED: Propofol 10 mg/ml Inj (20 ML) ONE (10:41)
--- NOTE | 2017-08-14 13:45 | CP.PCM.PN ---
Subjective - Date & Time of Evaluation Date of Evaluation: 08/14/17 Time of Evaluation: 14:00 - Subjective Subjective: F/U Abdominal pain. S/P Endoscopy today, no abdominal pain, tolerating well diet, no c/o, no headache. Objective - Vital Signs/Intake and Output Vital Signs (last 24 hours): Temp Pulse Resp BP Pulse Ox 97.8 F 65 20 104/68 97 08/14/17 12:53 08/14/17 12:53 08/14/17 12:53 08/14/17 12:53 08/14/17 12:53 Intake and Output: 08/14/17 08/14/17 06:59 18:59 Intake Total 940 Balance 940 - Medications Medications: Current Medications Acetaminophen/Butalbital/Caffeine (Fioricet) 1 tab PO Q4 PRN PRN Reason: Headache Last Admin: 08/13/17 00:25 Dose: 1 tab Al Hydrox/Mg Hydrox/Simethicone (Maalox Plus 30 Ml) 30 ml PO Q4 PRN PRN Reason: Indigestion / Heartburn Last Admin: 08/13/17 04:37 Dose: 30 ml Dicyclomine HCl (Bentyl) 20 mg PO TID PRN PRN Reason: Epigastric Pain Last Admin: 08/13/17 00:25 Dose: 20 mg Hydromorphone HCl (Dilaudid) 1 mg IVP Q4 PRN PRN Reason: Pain, severe (8-10) Last Admin: 08/14/17 05:38 Dose: 1 mg Magnesium Oxide (Mag-Ox) 400 mg PO BID [facility] Last Admin: 08/14/17 08:58 Dose: Not Given Ondansetron HCl (Zofran Inj) 4 mg IVP Q4 PRN PRN Reason: Nausea/Vomiting Pantoprazole Sodium (Protonix Inj) 40 mg IVP BID [facility] Last Admin: 08/14/17 08:59 Dose: 40 mg - Labs Labs: 08/13/17 05:33 08/13/17 05:33 PT 11.8 Seconds (9.8-13.1) 08/14/17 08:07 INR 1.1 (0.9-1.2) 08/14/17 08:07 Assessment and Plan (1) Abdominal pain, acute, epigastric Status: Acute (2) Intractable migraine Status: Acute (3) Hypokalemia Status: Acute - Assessment and Plan (Free Text) Plan: Pt clear by GI post EGD, improved and stable to be discharged, f/u PMD, call GI and Neurology for appointment.
[2017-08-14 20:06] VITALS: BP 94/61; PULSE 85; RESP 17; TEMP 98.2; O2SAT 95
--- NOTE | 2017-08-18 09:59 | CP.PCM.DIS ---
Provider - Provider Date of Admission: 08/14/17 09:09 Attending physician: Ander Camacho MD Consults: Gastroenterology Time Spent in preparation of Discharge (in minutes): 25 Diagnosis - Discharge Diagnosis (1) Abdominal pain, acute, epigastric Status: Acute Priority: High (2) Intractable migraine Status: Acute Priority: High (3) Hypokalemia Status: Acute Priority: High Hospital Course - Lab Results Lab Results: Most Recent Lab Values WBC 10.5 K/uL (4.8-10.8) 08/13/17 05:33 RBC 4.20 Mil/uL (3.80-5.20) 08/13/17 05:33 Hgb 13.2 g/dL (12.0-16.0) 08/13/17 05:33 Hct 39.7 % (34.0-47.0) 08/13/17 05:33 MCV 94.6 fl (81.0-99.0) 08/13/17 05:33 MCH 31.5 pg (27.0-31.0) H 08/13/17 05:33 MCHC 33.3 g/dL (33.0-37.0) 08/13/17 05:33 RDW 14.0 % (11.5-14.5) 08/13/17 05:33 Plt Count 200 K/uL (130-400) 08/13/17 05:33 MPV 8.3 fl (7.2-11.7) 08/12/17 19:00 Neut % (Auto) 63.1 % (50.0-75.0) 08/12/17 19:00 Lymph % (Auto) 27.3 % (20.0-40.0) 08/12/17 19:00 [place] % (Auto) 8.1 % (0.0-10.0) 08/12/17 19:00 Eos % (Auto) 0.9 % (0.0-4.0) 08/12/17 19:00 Baso % (Auto) 0.6 % (0.0-2.0) 08/12/17 19:00 Neut # (Auto) 7.2 K/uL (1.8-7.0) H 08/12/17 19:00 Lymph # (Auto) 3.1 K/uL (1.0-4.3) 08/12/17 19:00 [place] # (Auto) 0.9 K/uL (0.0-0.8) H 08/12/17 19:00 Eos # (Auto) 0.1 K/uL (0.0-0.7) 08/12/17 19:00 Baso # (Auto) 0.1 K/uL (0.0-0.2) 08/12/17 19:00 ESR 10 mm/hr (0-30) 08/13/17 05:33 PT 11.8 Seconds (9.8-13.1) 08/14/17 08:07 INR 1.1 (0.9-1.2) 08/14/17 08:07 Sodium 142 mmol/l (132-148) 08/13/17 05:33 Potassium 3.7 MMOL/L (3.6-5.0) 08/13/17 05:33 Chloride 107 mmol/L (98-107) 08/13/17 05:33 Carbon Dioxide 27 mmol/L (22-30) 08/13/17 05:33 Anion Gap 12 (10-20) 08/13/17 05:33 BUN 7 mg/dl (7-17) 08/13/17 05:33 Creatinine 0.4 mg/dl (0.7-1.2) L 08/13/17 05:33 Est GFR ( Amer) > 60 08/13/17 05:33 Est GFR (Non-Af Amer) > 60 08/13/17 05:33 Random Glucose 91 mg/dL (65-105) 08/13/17 05:33 Calcium 8.2 mg/dL (8.4-10.2) L 08/13/17 05:33 Total Bilirubin 0.7 mg/dl (0.2-1.3) 08/13/17 05:33 AST 20 U/L (14-36) 08/13/17 05:33 ALT 38 U/L (9-52) 08/13/17 05:33 Alkaline Phosphatase 43 U/L (38-126) 08/13/17 05:33 Total Protein 6.4 G/DL (6.3-8.2) 08/13/17 05:33 Albumin 3.8 g/dL (3.5-5.0) 08/13/17 05:33 Globulin 2.6 gm/dL (2.2-3.9) 08/13/17 05:33 Albumin/Globulin Ratio 1.4 (1.0-2.1) 08/13/17 05:33 Triglycerides 59 mg/DL (0-149) 08/13/17 05:33 Cholesterol 142 mg/dL (0-199) 08/13/17 05:33 LDL Cholesterol Direct 61 mg/dL (0-129) 08/13/17 05:33 HDL Cholesterol 52 MG/DL (30-70) 08/13/17 05:33 Thyroxine (T4) 11.7 ug/dl (5.5-11.0) H 08/13/17 05:33 TSH 3rd Generation 1.02 mIU/ML (0.46-4.68) 08/13/17 05:33 - Date & Time of H&P Date of H&P: 08/13/17 Time of H&P: 13:40 Discharge Exam - Head Exam Head Exam: NORMAL INSPECTION Discharge Plan - Discharge Medications Prescriptions: Magnesium Oxide [Mag-Ox] 400 mg PO BID #14 tab Pantoprazole [Protonix] 40 mg PO DAILY #30 ect - Follow Up Plan Condition: FAIR Disposition: HOME/ ROUTINE Patient education suggested?: Yes Instructions: Hypokalemia (DC), Migraine Headache (DC) Additional Instructions: F/U with PMD in one week.
== END 2017-08-14 20:20 | disposition home or self-care (01) ==
LOC: H.ER 17:18 → H.ERHOLD 21:04 → H.TEL 22:51 → OBSVTOIN 08-14 09:09 → INTOOBSV 08-14 09:09
PROVIDERS: ADMIT Internal Medicine Pulmonary Disease; ATTEND Internal Medicine Pulmonary Disease
PROC: 0DB78ZX Excision of Stomach, Pylorus, Via Natural or Artificial Opening Endoscopic, Diagnostic (ICD-10-PCS; 2017-08-14)
PROC: 0DB78ZZ Excision of Stomach, Pylorus, Via Natural or Artificial Opening Endoscopic (ICD-10-PCS; 2017-08-14)
PROC: 0DB98ZX Excision of Duodenum, Via Natural or Artificial Opening Endoscopic, Diagnostic (ICD-10-PCS; principal; 2017-08-14 12:15)
DX: K31.7 Polyp of stomach and duodenum (principal); E87.6 Hypokalemia; G43.919 Migraine, unspecified, intractable, without status migrainosus; J45.909 Unspecified asthma, uncomplicated; Z88.0 Allergy status to penicillin; Z85.3 Personal history of malignant neoplasm of breast; Z87.11 Personal history of peptic ulcer disease
CPT/HCPCS: 36415; 43239; 70544; 70553; 80053; 80061; 84436; 84443; 85025; 85027; 85610; 85651; 88305; 90732; 93005; 96365; 96368; 96375; 99284; A9579; C9113; G0009; G0378; J1100; J1170; J1885; J2001; J2060; J2405; J2704; J7030; J7120

== ENCOUNTER 2017-12-31 08:01 | Emergency (ER) | payer BC ==
[2017-12-31 08:06] VITALS: BMI 18.3
[2017-12-31] MEDS ORDERED: Sodium Chloride 0.9% 1,000 ML IV STA ×2 (08:19→08:57)
--- NOTE | 2017-12-31 08:23 | ED PDOC ---
HPI: Abdomen Time Seen by Provider: 12/31/17 08:14 Chief Complaint (Nursing): Abdominal Pain Chief Complaint (Provider): Abdominal Pain History Per: Patient History/Exam Limitations: no limitations Onset/Duration Of Symptoms: Days (x 1) Current Symptoms Are (Timing): Still Present Location Of Pain/Discomfort: Epigastric Quality Of Discomfort: "Pain" Associated Symptoms: denies: Fever, Nausea, Vomiting, Diarrhea Additional Complaint(s): 57 year old female with a history of peptic ulcer disease and migraines presents to the ED with epigastric pain since last night. Patient reports that pain radiates to her left shoulder. Otherwise, denies nausea, vomiting, diarrhea and fever. PMD: Dr. Haylee Rayo Past Medical History Reviewed: Historical Data, Nursing Documentation, Vital Signs Vital Signs: Last Vital Signs Temp 98 F 12/31/17 08:06 Pulse 90 12/31/17 08:06 Resp 17 12/31/17 08:06 BP 115/77 12/31/17 08:06 Pulse Ox 97 12/31/17 08:06 - Medical History PMH: Asthma ("SEASONAL"), Gastritis, Migraine Denies: Chronic Kidney Disease Other PMH: peptic ulcer disease - Surgical History Surgical History: No Surg Hx - Family History Family History: States: Unknown Family Hx - Social History Current smoker - smoking cessation education provided: No Alcohol: None Drugs: Denies - Home Medications Home Medications: Ambulatory Orders Medication Instructions Recorded Ondansetron [Zofran Tab] 4 mg PO Q8H #10 tab 08/04/17 Metoclopramide [Reglan] 10 mg PO Q8 PRN #8 tab 08/05/17 Methocarbamol [Robaxin] 500 mg PO TID 08/12/17 Naratriptan HCl [Amerge] 1.25 mg PO BID 08/12/17 SUMAtriptan [Imitrex Tab] 100 mg PO PRN PRN 08/12/17 Magnesium Oxide [Mag-Ox] 400 mg PO BID #14 tab 08/14/17 Pantoprazole [Protonix] 40 mg PO DAILY #30 ect 08/14/17 Sucralfate [Carafate] 1 gm PO Q8 #30 tablet 12/31/17 - Allergies Allergies/Adverse Reactions: Allergies Allergy/AdvReac Type Severity Reaction Status Date / Time Penicillins Allergy ANAPHYLAXIS Verified 12/31/17 08:10 Review of Systems ROS Statement: Except As Marked, All Systems Reviewed And Found Negative Constitutional: Negative for: Fever Gastrointestinal: Positive for: Abdominal Pain (epigastric). Negative for: Nausea, Vomiting, Diarrhea Musculoskeletal: Positive for: Shoulder Pain (abdominal pain radiates to left shoulder) Physical Exam - Reviewed Nursing Documentation Reviewed: Yes Vital Signs Reviewed: Yes - Physical Exam Appears: Positive for: Non-toxic, No Acute Distress Head Exam: Positive for: ATRAUMATIC, NORMAL INSPECTION, NORMOCEPHALIC Skin: Positive for: Normal Color, Warm, Dry Eye Exam: Positive for: EOMI, Normal appearance, PERRL Neck: Positive for: Normal, Painless ROM, Supple Cardiovascular/Chest: Positive for: Regular Rate, Rhythm. Negative for: Murmur Respiratory: Positive for: Normal Breath Sounds. Negative for: Wheezing, Re spiratory Distress Gastrointestinal/Abdominal: Positive for: Tenderness (epigastric ). Negative for: Mass Extremity: Positive for: Normal ROM (upper and lower extremities). Negative for: Deformity Neurologic/Psych: Positive for: Alert, Oriented. Negative for: Motor/Sensory Deficits - Laboratory Results Result Diagrams: 12/31/17 08:30 12/31/17 08:30 - ECG O2 Sat by Pulse Oximetry: 97 (RA) Pulse Ox Interpretation: Normal - Progress Re-evaluation Time: 10:32 Condition: Improved Medical Decision Making Medical Decision Makin:19 Impression: epigastric pain Initial Plan: --EKG --CBC --CMP --Lipase --Pantoprazole 40 mg IVP --Urine dip --NS IV -- 10 mg PO --Decadron Inj 10 mg/50 ml IVPB --Bentyl 10 mg PO Scribe Attestation: Documented by Miranda Coello, acting as a scribe for Darrion Ochoa MD Provider Scribe Attestation: All medical record entries made by the Scribe were at my direction and personally dictated by me. I have reviewed the chart and agree that the record accurately reflects my personal performance of the history, physical exam, medical decision making, and the department course for this patient. I have also personally directed, reviewed, and agree with the discharge instructions and disposition. Disposition - Clinical Impression Clinical Impression: Gastritis - Patient ED Disposition Is Patient to be Admitted: No Counseled Patient/Family Regarding: Studies Performed, Diagnosis, Need For Followup, Rx Given - Disposition Referrals: Elias Soto MD, PhD [Staff Provider] - Disposition: Routine/Home Disposition Time: 10:32 Condition: FAIR Prescriptions: Sucralfate [Carafate] 1 gm PO Q8 #30 tablet Instructions: Gastritis Forms: [facility] (Portuguese)
[2017-12-31] MEDS ORDERED: Atrop/Hyos/Scop/PhenoB Elixir PO ONE (08:37)
[2017-12-31 08:40] LABS: BASO % 0.5 % (0.0-2.0); EOS # 0.1 K/uL (0.0-0.7); EOS % 1.3 % (0.0-4.0); HEMOGLOBIN 14.8 g/dL (12.0-16.0); LYMPH # 2.3 K/uL (1.0-4.3); LYMPH % 37.3 % (20.0-40.0); MEAN CELL VOLUME 97.3 fl (81.0-99.0); MEAN CORPUSCULAR HGB CONC 32.9 g/dL (33.0-37.0); MEAN PLATELET VOLUME 8.5 fl (7.2-11.7); MONO # 0.4 K/uL (0.0-0.8); MONO % 5.7 % (0.0-10.0); NEUT # 3.5 K/uL (1.8-7.0); NEUT % 55.2 % (50.0-75.0); NRBC % 0.1 % (0.0-0.0); RBC 4.62 Mil/uL (3.80-5.20); RED CELL DISTRIBUTION WIDTH 14.2 % (11.5-14.5); WHITE BLOOD COUNT 6.3 K/uL (4.8-10.8)
[2017-12-31] MEDS: Dexamethasone 10 MG in Sodium Chloride 0.9% 50 ML IVPB STA ×2 (08:52→09:54)
[2017-12-31 08:56] LABS: ALB/GLOB RATIO 1.5 (1.0-2.1); ALBUMIN 4.7 g/dL (3.5-5.0); BLOOD UREA NITROGEN 10 mg/dl (7-17); CALCIUM 9.5 mg/dL (8.4-10.2); GFR NON-AFRICAN AMERICAN > 60; LIPASE 74 U/L (23-300)
[2017-12-31] MEDS ORDERED: Apap-Butalbital-Caffeine 325-50-40mg Tab PO STA (08:56)
[2017-12-31] MEDS ORDERED: Apap-Butalbital-Caffeine 325-50-40mg Tab ONE (09:08)
[2017-12-31 09:14] LABS: ALT/SGPT 35 U/L (9-52); AST/SGOT 39 U/L (14-36)
[2017-12-31] MEDS ORDERED: Pantoprazole 40 mg EC Tab PO STA (09:22)
[2017-12-31 10:41] VITALS: BP 114/59; PULSE 70; RESP 18; TEMP 98.2; O2SAT 100
--- NOTE | 2017-12-31 19:34 | CARD ---
APPROVED REPORT Date of service: 12/31/2017 EKG Measurement Heart [id number] <Conclusion> Normal sinus rhythm Normal ECG
== END 2017-12-31 10:44 | disposition home or self-care (01) ==
LOC: H.ER 08:01
DX: K29.70 Gastritis, unspecified, without bleeding (principal)
CPT/HCPCS: 80053; 83690; 85025; 93005; 96365; 96375; 99284; C9113; J1100; J7030

== ENCOUNTER 2018-01-02 06:32 | Emergency (ER) | payer BC ==
[2018-01-02 06:32] VITALS: BMI 18.3
[2018-01-02 07:01] VITALS: TEMP 97.6; O2SAT 98
[2018-01-02] MEDS ORDERED: Sodium Chloride 0.9% 1,000 ML IV STA (07:41)
--- NOTE | 2018-01-02 07:42 | ED PDOC ---
HPI: Abdomen Time Seen by Provider: 01/02/18 07:17 Chief Complaint (Nursing): Abdominal Pain Chief Complaint (Provider): Abdominal Pain History Per: Patient History/Exam Limitations: no limitations Onset/Duration Of Symptoms: Other (x1 month) Current Symptoms Are (Timing): Still Present Associated Symptoms: Nausea. denies: Vomiting, Diarrhea Additional Complaint(s): 57 year old female, with a past medical history of migraines and peptic ulcer disease, presents to the ED complaining of worsening abdominal pain, radiating to the back, and a headache which has been ongoing for the last month. Patient reports pain is constant and burning and states she was seen in the ED for the same reason on December 31. During the visit, she was given Bentyl, Decadron, Donnatil, and Protonix. She reports she had an appointment with her GI doctor, Dr. Soto who prescribed dicyclomine and has an appointment for an endoscopy on January 13. She also indicates she had a CT scan done on the which was normal. She indicates feeling nauseous but denies chest pain, vomiting, diarrhea, and fever. PMD: Haylee Jovel Past Medical History Reviewed: Historical Data, Nursing Documentation, Vital Signs Vital Signs: Last Vital Signs Temp 97.6 F 01/02/18 06:59 Pulse 92 H 01/02/18 06:59 Resp 16 01/02/18 06:59 BP 101/68 01/02/18 06:59 Pulse Ox 98 01/02/18 06:59 - Medical History PMH: Asthma ("SEASONAL"), Gastritis, Migraine Denies: Chronic Kidney Disease Other PMH: Peptic Ulcer Disease - Surgical History Other surgeries: fibroid removed - Family History Family History: States: Unknown Family Hx - Home Medications Home Medications: Ambulatory Orders Medication Instructions Recorded Acetaminophen/Butalbital/Caf 1 tab PO TID PRN #15 tab 01/02/18 [Fioricet] Atorvastatin [Lipitor] 40 mg PO DAILY 01/02/18 Buspirone HCl 15 mg PO BID 01/02/18 Clonazepam [Klonopin] 0.5 mg PO BID 01/02/18 Dexlansoprazole [Dexilant] 60 mg PO DAILY 01/02/18 Methocarbamol [Robaxin] 500 mg PO TID PRN 11/17/18 Pantoprazole Sodium [Protonix] 40 mg PO DAILY #30 ect 01/02/18 Sucralfate [Carafate] 1 gm PO TID 01/02/18 - Allergies Allergies/Adverse Reactions: Allergies Allergy/AdvReac Type Severity Reaction Status Date / Time Penicillins Allergy ANAPHYLAXIS Verified 12/31/17 08:10 Review of Systems ROS Statement: Except As Marked, All Systems Reviewed And Found Negative Cardiovascular: Negative for: Chest Pain Gastrointestinal: Positive for: Nausea, Abdominal Pain. Negative for: Vomiting, Diarrhea Neurological: Positive for: Headache Physical Exam - Reviewed Nursing Documentation Reviewed: Yes Vital Signs Reviewed: Yes - Physical Exam Appears: Positive for: Non-toxic, No Acute Distress Head Exam: Positive for: ATRAUMATIC, NORMOCEPHALIC Skin: Positive for: Normal Color, Warm, Dry Eye Exam: Positive for: Normal appearance Neck: Positive for: Normal, Painless ROM Cardiovascular/Chest: Positive for: Regular Rate, Rhythm Respiratory: Positive for: Normal Breath Sounds. Negative for: Wheezing, Respiratory Distress Pulses-Radial (L): 2+ Pulses-Radial (R): 2+ Gastrointestinal/Abdominal: Positive for: Tenderness (epigastric) Extremity: Positive for: Normal ROM Neurologic/Psych: Positive for: Alert, Oriented. Negative for: Motor/Sensory De ficits - Laboratory Results Result Diagrams: 01/02/18 08:00 01/02/18 08:00 - ECG O2 Sat by Pulse Oximetry: 98 (RA) Pulse Ox Interpretation: Normal - Progress Re-evaluation Time: 11:24 Condition: Re-examined, Improved Medical Decision Making Medical Decision Making: Initial Impression: Gastritis, peptic ulcer disease, pancreatitis, gall bladder disease Initial Plan: --ECG --CMP --Lipase --CBC --Sodium chloride 1000mL IV --Pepcid 20mg IV --Protonix 40mg IV --Reglan 10mg IV --Toradol 15mg IV --Gallbladder US 09:28 Gallbladder US FINDINGS: LIVER: Measures 13.5 cm in length. There multiple lesions scattered in the liver the majority of which appear benign. At the left lobe, there is a tiny benign cystic lesion measures 1.0 x 1.0 x 0.7 cm. At the right lobe liver toward the dome, there is a mildly complex cyst likely benign measuring 3.3 x 3.2 x 3.2 cm. No vascularity is seen related to the small nodule measuring 5 mm at the roof of the cyst laterally. There is a hyperechoic lesion measuring 2.1 x 1.7 x 1.9 cm at the right lobe posteriorly probably reflecting a benign hemangioma. Finally, immediately cephalad to that hyperechoic lesion, there is a complex cyst with multiple septations measuring 4.1 x 3.6 x 2.1 cm at the right lobe avascular. Follow-up elective MRI with and without contrast is advised for added characterization of these final to lesions. GALLBLADDER: Unremarkable. No gallstones. COMMON BILE DUCT: Measures 4.5 mm. No stones. No dilatation. PANCREAS: Unremarkable as visualized. No mass. No ductal dilatation. RIGHT KIDNEY: Measures 9.6 cm in length. Normal echogenicity. No calculus, mass, or hydronephrosis. AORTA: No aneurysmal dilatation. IVC: Unremarkable. OTHER FINDINGS: None . IMPRESSION: 1. There are several hepatic lesions, the majority which appear to be cystic with 1 solid hyperechoic lesion. Although likely benign as discussed above. Correlation of the hyperechoic solid lesion and complex cystic lesion near by is recommended by MRI with and without contrast on elective basis. The liver ot herwise appears unremarkable. 2. No additional pertinent findings. 11:51 Patient is having minimal pain and headache right now. Patient will follow up with Dr. Soto for headache and abdominal pain. Prescription for protonix and for imitrex given to patient. Scribe Attestation: Documented by Bc Borrero acting as a scribe for Anitha Llanos MD. Provider Scribe Attestation: All medical record entries made by the Scribe were at my direction and personally dictated by me. I have reviewed the chart and agree that the record accurately reflects my personal performance of the history, physical exam, medical decision making, and the department course for this patient. I have also personally directed, reviewed, and agree with the discharge instructions and disposition. Disposition - Clinical Impression Clinical Impression: Abdominal pain, Migraine - Patient ED Disposition Is Patient to be Admitted: No Doctor Will See Patient In The: Office Counseled Patient/Family Regarding: Studies Performed, Diagnosis, Need For Follo wup - Disposition Referrals: Elias Soto MD, PhD [Staff Provider] - Disposition: Routine/Home Disposition Time: 11:25 Condition: IMPROVED Additional Instructions: CONNER TAMAYO, thank you for letting us take care of you today. Your provider was Anitha Llanos MD and you were treated for ABD PAIN, HEADACHE. The emergency medical care you received today was directed at your acute symptoms. If you were prescribed any medication, please fill it and take as directed. It may take several days for your symptoms to resolve. Return to the Emergency Depa rtment if your symptoms worsen, do not improve, or if you have any other problems. Please contact your doctor or call one of the physicians/clinics you have been referred to that are listed on the Patient Visit Information form that is included in your discharge packet. Bring any paperwork you were given at discharge with you along with any medications you are taking to your follow up visit. Our treatment cannot replace ongoing medical care by a primary care provider outside of the emergency department. Thank you for allowing the [facility] team to be part of your care today. If you had an X-Ray or CT scan: A Radiologist will review the ED reading if any change in treatment is needed we will contact you. If you had a blood, urine, or wound culture: It will take several days for the results, if any change in treatment is needed we will contact you. If you had an STI test: It will take 48 hours for the results. Please call after 1 week if you have not heard back. Prescriptions: Pantoprazole Sodium [Protonix] 40 mg PO DAILY #30 ect Rizatriptan Benzoate [Rizatriptan] 10 mg PO PRN PRN #20 tablet PRN Reason: Headache Instructions: Stomach Ache and Stomach Upset, Migraine Headaches in Adults
[2018-01-02 08:21] LABS: BASO % 0.5 % (0.0-2.0); EOS # 0.1 K/uL (0.0-0.7); HEMOGLOBIN 14.7 g/dL (12.0-16.0); LYMPH # 2.5 K/uL (1.0-4.3); LYMPH % 35.3 % (20.0-40.0); MEAN CORPUSCULAR HEMOGLOBIN 31.8 pg (27.0-31.0); MEAN CORPUSCULAR HGB CONC 33.8 g/dL (33.0-37.0); MEAN PLATELET VOLUME 8.7 fl (7.2-11.7); MONO # 0.4 K/uL (0.0-0.8); MONO % 5.7 % (0.0-10.0); NEUT # 4.1 K/uL (1.8-7.0); NEUT % 57.5 % (50.0-75.0); NRBC % 0.1 % (0.0-0.0); RBC 4.64 Mil/uL (3.80-5.20); RED CELL DISTRIBUTION WIDTH 14.2 % (11.5-14.5); WHITE BLOOD COUNT 7.1 K/uL (4.8-10.8)
[2018-01-02 08:28] LABS: ALB/GLOB RATIO 1.6 (1.0-2.1); ALBUMIN 4.8 g/dL (3.5-5.0); ALT/SGPT 39 U/L (9-52); AST/SGOT 33 U/L (14-36); BLOOD UREA NITROGEN 10 mg/dl (7-17); GFR NON-AFRICAN AMERICAN > 60; LIPASE 64 U/L (23-300)
--- NOTE | 2018-01-02 09:32 | US ---
Date of service: 01/02/2018 HISTORY: epigastric pain COMPARISON: None. TECHNIQUE: Sonographic evaluation of the right upper quadrant of the abdomen. FINDINGS: LIVER: Measures 13.5 cm in length. There multiple lesions scattered in the liver the majority of which appear benign. At the left lobe, there is a tiny benign cystic lesion measures 1.0 x 1.0 x 0.7 cm. At the right lobe liver toward the dome, there is a mildly complex cyst likely benign measuring 3.3 x 3.2 x 3.2 cm. No vascularity is seen related to the small nodule measuring 5 mm at the roof of the cyst laterally. There is a hyperechoic lesion measuring 2.1 x 1.7 x 1.9 cm at the right lobe posteriorly probably reflecting a benign hemangioma. Finally, immediately cephalad to that hyperechoic lesion, there is a complex cyst with multiple septations measuring 4.1 x 3.6 x 2.1 cm at the right lobe avascular. Follow-up elective MRI with and without contrast is advised for added characterization of these final to lesions. GALLBLADDER: Unremarkable. No gallstones. COMMON BILE DUCT: Measures 4.5 mm. No stones. No dilatation. PANCREAS: Unremarkable as visualized. No mass. No ductal dilatation. RIGHT KIDNEY: Measures 9.6 cm in length. Normal echogenicity. No calculus, mass, or hydronephrosis. AORTA: No aneurysmal dilatation. IVC: Unremarkable. OTHER FINDINGS: None . IMPRESSION: 1. There are several hepatic lesions, the majority which appear to be cystic with 1 solid hyperechoic lesion. Although likely benign as discussed above. Correlation of the hyperechoic solid lesion and complex cystic lesion near by is recommended by MRI with and without contrast on elective basis. The liver otherwise appears unremarkable. 2. No additional pertinent findings.
[2018-01-02] MEDS ORDERED: DiphenhydrAMINE 50 mg/ml Inj IV STA (10:30)
[2018-01-02] MEDS ORDERED: DiphenhydrAMINE 50 mg/ml Inj ONE (10:36)
[2018-01-02 10:47] VITALS: BP 143/86; PULSE 58; RESP 18
--- NOTE | 2018-01-02 13:42 | CARD ---
APPROVED REPORT Date of service: 01/02/2018 EKG Measurement Heart [id number] <Conclusion> Normal sinus rhythm Normal ECG
== END 2018-01-02 12:52 | disposition home or self-care (01) ==
LOC: H.ER 06:32
DX: G43.909 Migraine, unspecified, not intractable, without status migrainosus (principal); R10.9 Unspecified abdominal pain; J45.909 Unspecified asthma, uncomplicated; Z79.899 Other long term (current) drug therapy; Z88.0 Allergy status to penicillin
CPT/HCPCS: 76705; 80053; 83690; 85025; 93005; 96372; 96374; 96375; 99284; C9113; J1200; J1885; J2765; J3030; J7030

== ENCOUNTER 2018-01-05 09:30 | Emergency (ER) | payer BC ==
[2018-01-05 09:51] VITALS: BMI 18.1
[2018-01-05] MEDS ORDERED: Sodium Chloride 0.9% 1,000 ML IV STA (10:35)
--- NOTE | 2018-01-05 10:51 | ED PDOC ---
HPI: Abdomen Time Seen by Provider: 01/05/18 10:10 Chief Complaint (Nursing): Abdominal Pain Chief Complaint (Provider): abdominal pain History Per: Patient History/Exam Limitations: no limitations Onset/Duration Of Symptoms: Days (x1 month), Worse Since (x1 week) Severity: Severe Associated Symptoms: Nausea. denies: Fever, Chills, Vomiting, Diarrhea, Chest Pain Additional Complaint(s): Patria Smith is a 57 year old female, with a past medical history of migraines and hypercholesterolemia, who presents to the emergency department complaining of a severe abdominal pain onset for x1 month but worst over the past week associated with nausea. Patient also reports a headache which feels similar to previous migraines. She describes the abdominal pain as a burning sensation and reports symptoms don't worsen with food. Patient states this is her 3rd time visiting the ED for the same pain over the past week. She tried to follow up with her GI but he is currently on vacation and the doctor who is covering for him advised her to come to ED. Patient has an endoscopy scheduled for next week. She denies any vomiting, diarrhea, urinary symptoms, leg pain, incontinence, urinary symptoms, fever, chills, cough, congestion, runny nose, headache, dizziness, numbness or tingling, weakness, chest pain, shortness of breath or other medical complaints. PMD: Haylee Rayo GI: Dr. Soto Past Medical History Reviewed: Historical Data, Nursing Documentation, Vital Signs Vital Signs: Last Vital Signs Temp 97 F L 01/05/18 09:50 Pulse 93 H 01/05/18 09:50 Resp 20 01/05/18 09:50 BP 121/82 01/05/18 09:50 Pulse Ox 96 01/05/18 09:50 - Medical History PMH: Asthma ("SEASONAL"), Gastritis, Hypercholesterolemia, Migraine Denies: Chronic Kidney Disease - Surgical History Surgical History: No Surg Hx - Family History Family History: States: Unknown Family Hx - Social History Current smoker - smoking cessation education provided: No Alcohol: None Drugs: Denies - Home Medications Home Medications: Ambulatory Orders Medication Instructions Recorded Acetaminophen/Butalbital/Caf 1 tab PO TID PRN #15 tab 01/02/18 [Fioricet] Atorvastatin [Lipitor] 40 mg PO DAILY 01/02/18 Buspirone HCl 15 mg PO BID 01/02/18 Clonazepam [Klonopin] 0.5 mg PO BID 01/02/18 Dexlansoprazole [Dexilant] 60 mg PO DAILY 01/02/18 Methocarbamol [Robaxin] 500 mg PO TID PRN 01/02/18 Pantoprazole Sodium [Protonix] 40 mg PO DAILY #30 ect 01/02/18 Sucralfate [Carafate] 1 gm PO TID 01/02/18 - Allergies Allergies/Adverse Reactions: Allergies Allergy/AdvReac Type Severity Reaction Status Date / Time Penicillins Allergy ANAPHYLAXIS Verified 12/31/17 08:10 Review of Systems ROS Statement: Except As Marked, All Systems Reviewed And Found Negative Constitutional: Negative for: Fever, Chills ENT: Negative for: Nose Discharge, Nose Congestion Cardiovascular: Negative for: Chest Pain Respiratory: Negative for: Cough, Shortness of Breath Gastrointestinal: Positive for: Nausea, Abdominal Pain. Negative for: Vomiting, Diarrhea Genitourinary Female: Negative for: Dysuria, Frequency, Incontinence Musculoskeletal: Negative for: Leg Pain Neurological: Positive for: Headache. Negative for: Weakness, Numbness (tingling), Dizziness Physical Exam - Reviewed Nursing Documentation Reviewed: Yes Vital Signs Reviewed: Yes - Physical Exam Appears: Positive for: No Acute Distress Head Exam: Positive for: ATRAUMATIC, NORMAL INSPECTION, NORMOCEPHALIC Skin: Positive for: Normal Color, Warm, Dry Eye Exam: Positive for: Normal appearance, EOMI, PERRL Neck: Positive for: Normal, Painless ROM Cardiovascular/Chest: Positive for: Regular Rate, Rhythm. Negative for: Murmur Respiratory: Positive for: Normal Breath Sounds. Negative for: Respiratory Distress Gastrointestinal/Abdominal: Positive for: Tenderness (mild epigastric) Back: Positive for: Normal Inspection. Negative for: L CVA Tenderness, R CVA Tenderness, Vertebral Tenderness Extremity: Positive for: Normal ROM (upper and lower extremities). Negative for: Deformity, Swelling Neurologic/Psych: Positive for: Alert, Oriented. Negative for: Motor/Sensory Deficits - Laboratory Results Result Diagrams: 01/05/18 10:58 01/05/18 10:58 Interpretation Of Abn Labs: 2.9 k - ECG O2 Sat by Pulse Oximetry: 96 (RA) Pulse Ox Interpretation: Normal - Progress ED Course And Treament: 1235: Stable. AAOx3. Chronic pain. Multiple ER visits and seen by specialists. Has endoscopy scheduled. Medical Decision Making Medical Decision Making: Time: 10:10 Initial Impression: Abdominal pain. Migraine headache Initial Plan: --CMP --Lipase --CBC w/ differential --Sodium Chloride 1,000 ml IV 1,000 mls/hr --Pepcid 20 mg IVP --Reglan 10 mg IV --Toradol 15 mg IVP --Reevaluation Scribe Attestation: Documented by Raghav Huff, acting as a scribe for Ramón Delgado MD. Provider Scribe Attestation: All medical record entries made by the Scribe were at my direction and personally dictated by me. I have reviewed the chart and agree that the record accurately reflects my personal performance of the history, physical exam, medical decision making, and the department course for this patient. I have also personally directed, reviewed, and agree with the discharge instructions and disposition. Disposition - Clinical Impression Clinical Impression: Hypokalemia, Abdominal pain - Patient ED Disposition Is Patient to be Admitted: No Counseled Patient/Family Regarding: Studies Performed, Diagnosis, Need For Followup - Disposition Referrals: Elias Soto MD, PhD [Staff Provider] - 01/06/18 [facility] [Outside] - 01/06/18 Disposition: Routine/Home Disposition Time: 12:37 Condition: STABLE Additional Instructions: Return if not better in 3 days. Instructions: Stomach Ache and Stomach Upset, Hypokalemia (DC) Forms: [employer] (Belgian), [facility] ED School/Work Excuse
[2018-01-05 11:09] LABS: BASO # 0.1 K/uL (0.0-0.2); BASO % 0.8 % (0.0-2.0); EOS # 0.1 K/uL (0.0-0.7); EOS % 1.1 % (0.0-4.0); LYMPH # 2.8 K/uL (1.0-4.3); LYMPH % 42.3 % (20.0-40.0); MEAN CELL VOLUME 95.3 fl (81.0-99.0); MEAN CORPUSCULAR HEMOGLOBIN 31.5 pg (27.0-31.0); MEAN CORPUSCULAR HGB CONC 33.1 g/dL (33.0-37.0); MEAN PLATELET VOLUME 8.7 fl (7.2-11.7); MONO # 0.4 K/uL (0.0-0.8); MONO % 6.6 % (0.0-10.0); NEUT # 3.3 K/uL (1.8-7.0); NEUT % 49.2 % (50.0-75.0); NRBC % 0.1 % (0.0-0.0); RBC 4.43 Mil/uL (3.80-5.20); RED CELL DISTRIBUTION WIDTH 14.1 % (11.5-14.5); WHITE BLOOD COUNT 6.7 K/uL (4.8-10.8)
[2018-01-05 11:26] LABS: ALB/GLOB RATIO 1.6 (1.0-2.1); ALBUMIN 4.2 g/dL (3.5-5.0); ALT/SGPT 30 U/L (9-52); AST/SGOT 24 U/L (14-36); BLOOD UREA NITROGEN 10 mg/dl (7-17); CALCIUM 9.4 mg/dL (8.4-10.2); GFR NON-AFRICAN AMERICAN > 60; LIPASE 72 U/L (23-300)
[2018-01-05] MEDS ORDERED: Belladonna-Phenobarbital PO ONE (12:15)
[2018-01-05] MEDS ORDERED: Potassium Chloride 20 mEq ER Tab PO STA (12:21)
[2018-01-05] MEDS ORDERED: Potassium Chloride 20 mEq ER Tab PO ONE (12:38)
[2018-01-05 12:51] VITALS: BP 122/64; PULSE 82; RESP 16; TEMP 97.8; O2SAT 98
== END 2018-01-05 12:45 | disposition home or self-care (01) ==
LOC: H.ER 09:30
DX: E87.6 Hypokalemia (principal); R10.9 Unspecified abdominal pain; E78.00 Pure hypercholesterolemia, unspecified; Z88.0 Allergy status to penicillin
CPT/HCPCS: 80053; 83690; 85025; 96374; 96375; 99284; J1885; J2765; J7030

== ENCOUNTER 2018-01-07 07:45 | Emergency (ER) | payer BC ==
[2018-01-07 07:46] VITALS: BMI 18.1
[2018-01-07 07:56] VITALS: RESP 18
[2018-01-07] MEDS ORDERED: Pantoprazole 40 mg EC Tab PO STA (08:18)
[2018-01-07] MEDS ORDERED: Sodium Chloride 0.9% 1,000 ML IV STA (08:18)
[2018-01-07] MEDS ORDERED: Atrop/Hyos/Scop/PhenoB Elixir PO ONE (08:18)
[2018-01-07] MEDS ORDERED: Dexamethasone 4 MG in Sodium Chloride 0.9% 50 ML IVPB STA (08:18)
--- NOTE | 2018-01-07 08:29 | ED PDOC ---
HPI: Abdomen Time Seen by Provider: 01/07/18 08:06 Chief Complaint (Nursing): GI Problem Chief Complaint (Provider): Abdominal Pain History Per: Patient History/Exam Limitations: no limitations Onset/Duration Of Symptoms: Days, Other (x1 week) Additional Complaint(s): 57 year old female, with a PMHx of peptic ulcer disease and migraines, presenting to the ED for evaluation of epigastric pain x1 week. Patient reports that the pain radiates to her left shoulder. Patient denies any fever, chills, nausea, vomiting, and diarrhea. Patient was seen on 12/31 in this ED with complaints of the same. PMD: Dr. Haylee Rayo Past Medical History Reviewed: Historical Data, Nursing Documentation, Vital Signs Vital Signs: Last Vital Signs Temp 97.7 F 01/07/18 07:56 Pulse 77 01/07/18 07:56 Resp 18 01/07/18 07:56 BP 121/83 01/07/18 07:56 Pulse Ox 98 01/07/18 07:56 - Medical History PMH: Asthma ("SEASONAL"), Gastritis, Hypercholesterolemia, Migraine Denies: Chronic Kidney Disease Other PMH: Peptic ulcer disease - Surgical History Surgical History: No Surg Hx - Family History Family History: States: Unknown Family Hx - Home Medications Home Medications: Ambulatory Orders Medication Instructions Recorded Acetaminophen/Butalbital/Caf 1 tab PO TID PRN #15 tab 01/02/18 [Fioricet] Atorvastatin [Lipitor] 40 mg PO DAILY 01/02/18 Buspirone HCl 15 mg PO BID 01/02/18 Clonazepam [Klonopin] 0.5 mg PO BID 01/02/18 Dexlansoprazole [Dexilant] 60 mg PO DAILY 01/02/18 Methocarbamol [Robaxin] 500 mg PO TID PRN 01/02/18 Pantoprazole Sodium [Protonix] 40 mg PO DAILY #30 ect 01/02/18 Sucralfate [Carafate] 1 gm PO TID 01/02/18 - Allergies Allergies/Adverse Reactions: Allergies Allergy/AdvReac Type Severity Reaction Status Date / Time Penicillins Allergy ANAPHYLAXIS Verified 01/07/18 08:02 Review of Systems ROS Statement: Except As Marked, All Systems Reviewed And Found Negative Constitutional: Negative for: Fever, Chills Gastrointestinal: Positive for: Abdominal Pain. Negative for: Nausea, Vomiting, Diarrhea Musculoskeletal: Positive for: Shoulder Pain (abdominal pain radiating to left shoulder) Physical Exam - Reviewed Nursing Documentation Reviewed: Yes Vital Signs Reviewed: Yes - Physical Exam Appears: Positive for: Non-toxic, No Acute Distress Head Exam: Positive for: ATRAUMATIC, NORMAL INSPECTION, NORMOCEPHALIC Skin: Positive for: Normal Color, Warm, Dry. Negative for: Rash Eye Exam: Positive for: EOMI, Normal appearance, PERRL ENT: Positive for: Normal ENT Inspection Neck: Positive for: Normal, Painless ROM, Supple Cardiovascular/Chest: Positive for: Regular Rate, Rhythm. Negative for: Murmur Respiratory: Positive for: Normal Breath Sounds. Negative for: Wheezing, Respiratory Distress Gastrointestinal/Abdominal: Positive for: Soft, Tenderness (epigastric). Negative for: Mass, Guarding, Rebound Back: Positive for: Normal Inspection. Negative for: L CVA Tenderness, R CVA Tenderness, Vertebral Tenderness Extremity: Positive for: Normal ROM. Negative for: Pedal Edema, Deformity Neurologic/Psych: Positive for: Alert, Oriented. Negative for: Motor/Sensory Deficits - Laboratory Results Result Diagrams: 01/07/18 08:45 01/07/18 09:20 - ECG O2 Sat by Pulse Oximetry: 98 (RA) Pulse Ox Interpretation: Normal - Progress Re-evaluation Time: 11:18 Condition: Improved Medical Decision Making Medical Decision Makin Plan: -CMP -Lipase -CBC -Bentyl 10mg PO -Decadron 4mg IV -Atropine 10mg PO -1L NS at 250mL/hor -Protonix 10mg PO -Reevaluation Scribe Attestation: Documented by Ortega Mirza, acting as a scribe for Darrion Ochoa MD. Provider Scribe Attestation: All medical record entries made by the Scribe were at my direction and personally dictated by me. I have reviewed the chart and agree that the record accurately reflects my personal performance of the history, physical exam, medical decision making, and the department course for this patient. I have also personally directed, reviewed, and agree with the discharge instructions and disposition. Disposition - Clinical Impression Clinical Impression: Gastritis - Patient ED Disposition Is Patient to be Admitted: No Counseled Patient/Family Regarding: Studies Performed, Diagnosis, Need For Followup, Rx Given - Disposition Referrals: Xavi Osborn [Staff Provider] - Disposition: Routine/Home Disposition Time: 11:19 Condition: FAIR Instructions: Gastritis Forms: [facility] (Burkinan)
[2018-01-07] MEDS ORDERED: Dexamethasone 4 mg/1 ml IV ONE (08:30)
[2018-01-07] MEDS ORDERED: Pantoprazole 40 mg EC Tab PO ONE (08:49)
[2018-01-07] MEDS ORDERED: Dexamethasone 4 mg/1 ml ONE (08:49)
[2018-01-07 08:58] LABS: BASO % 0.4 % (0.0-2.0); EOS # 0.1 K/uL (0.0-0.7); EOS % 1.4 % (0.0-4.0); HEMOGLOBIN 14.5 g/dL (12.0-16.0); LYMPH # 2.6 K/uL (1.0-4.3); MEAN CELL VOLUME 95.5 fl (81.0-99.0); MEAN CORPUSCULAR HEMOGLOBIN 32.3 pg (27.0-31.0); MEAN CORPUSCULAR HGB CONC 33.8 g/dL (33.0-37.0); MEAN PLATELET VOLUME 9.6 fl (7.2-11.7); MONO # 0.5 K/uL (0.0-0.8); MONO % 6.8 % (0.0-10.0); NEUT # 3.8 K/uL (1.8-7.0); NEUT % 54.4 % (50.0-75.0); NRBC % 0.3 % (0.0-0.0); RBC 4.5 Mil/uL (3.80-5.20); RED CELL DISTRIBUTION WIDTH 14.4 % (11.5-14.5)
[2018-01-07 09:39] LABS: ALB/GLOB RATIO 1.6 (1.0-2.1); ALBUMIN 4.2 g/dL (3.5-5.0); ALT/SGPT 47 U/L (9-52); AST/SGOT 36 U/L (14-36); BLOOD UREA NITROGEN 10 mg/dl (7-17); CALCIUM 9.8 mg/dL (8.4-10.2); GFR NON-AFRICAN AMERICAN > 60; LIPASE 43 U/L (23-300)
[2018-01-07] MEDS ORDERED: Potassium CL 10mEq/100ml 100 ML IVPB ONE (10:02)
[2018-01-07] MEDS ORDERED: Potassium Chloride 20 mEq ER Tab PO ONE ×2 (10:02→10:28)
[2018-01-07] MEDS ORDERED: Potassium CL 10 MEQ/50 ML 50 ML ONE (10:29)
[2018-01-07] MEDS ORDERED: Potassium CL 10 MEQ/50 ML 50 ML IVPB ONE (10:30)
[2018-01-07] MEDS ORDERED: [UNRECOGNIZED DRUG - OTHER] PO STA (11:14)
[2018-01-07 11:38] VITALS: BP 112/69; PULSE 62; TEMP 97.8; O2SAT 100
== END 2018-01-07 12:08 | disposition home or self-care (01) ==
LOC: H.ER 07:45
DX: K29.70 Gastritis, unspecified, without bleeding (principal); J45.909 Unspecified asthma, uncomplicated; Z88.0 Allergy status to penicillin; E78.00 Pure hypercholesterolemia, unspecified
CPT/HCPCS: 80053; 83690; 85025; 96374; 99284; J1100; J3480; J7030

== ENCOUNTER 2018-04-30 10:21 | Emergency (ER) | payer BC ==
[2018-04-30 10:43] VITALS: RESP 18; TEMP 98.4; O2SAT 99; BMI 18.4
[2018-04-30] MEDS ORDERED: Sodium Chloride 0.9% 500 ML IV STA (11:34)
--- NOTE | 2018-04-30 12:11 | ED PDOC ---
HPI: Headache Time Seen by Provider: 04/30/18 11:04 Chief Complaint (Nursing): Headache Chief Complaint (Provider): Headache History Per: Patient History/Exam Limitations: no limitations Onset/Duration Of Symptoms: Days (4) Current Symptoms Are (Timing): Still Present Quality: "Pain" Preceeding Symptoms: Known Migraine Symptoms Associated Symptoms: Photophobia, Nausea. denies: Vomiting Additional History Per: Patient Additional Complaint(s): 58yo female, with history of migraines, comes to ER with report of a migraine headache, present for the past 4 days. Patient follows up with neurologist Dr. Quigley at [facility] and was advised to come to an ER for Toradol injection for headache relief. Patient was evaluated by Dr. Quigley and was administered Lidocaine injections in trigger points on her posterior scalp, but states the pain returned the day after. She reports associated nausea, photophobia, but denies any vomiting, fever, or neck stiffness. Patient states the headache is like her typical migraine headache, and states it is not the worst of her lifetime. She took her Neurontin as well as Imitrex with no relief. PMD: Dr. Quigley Past Medical History Reviewed: Historical Data, Nursing Documentation, Vital Signs Vital Signs: Last Vital Signs Temp 98.4 F 04/30/18 10:42 Pulse 83 04/30/18 10:42 Resp 18 04/30/18 10:42 BP 124/79 04/30/18 10:42 Pulse Ox 99 04/30/18 10:42 - Medical History PMH: Anxiety, Asthma ("SEASONAL"), Depression, Gastritis, Hypercholesterolemia, Migraine Denies: Chronic Kidney Disease - Surgical History Surgical History: No Surg Hx - Family History Family History: States: Unknown Family Hx - Home Medications Home Medications: Ambulatory Orders Medication Instructions Recorded Acetaminophen/Butalbital/Caf 1 tab PO TID PRN #15 tab 01/02/18 [Fioricet] Atorvastatin [Lipitor] 40 mg PO DAILY 01/02/18 Buspirone HCl 15 mg PO BID 01/02/18 Clonazepam [Klonopin] 0.5 mg PO BID 01/02/18 Dexlansoprazole [Dexilant] 60 mg PO DAILY 01/02/18 Methocarbamol [Robaxin] 500 mg PO TID PRN 01/02/18 Pantoprazole Sodium [Protonix] 40 mg PO DAILY #30 ect 01/02/18 Sucralfate [Carafate] 1 gm PO TID 01/02/18 chlordiazePOXIDE [Chlordiazepoxide 25 mg PO Q8 #10 cap 01/07/18 HCl] - Allergies Allergies/Adverse Reactions: Allergies Allergy/AdvReac Type Severity Reaction Status Date / Time niacin Allergy ANAPHYLAXIS Verified 04/30/18 11:04 Penicillins Allergy ANAPHYLAXIS Verified 04/30/18 11:04 Review of Systems ROS Statement: Except As Marked, All Systems Reviewed And Found Negative Eyes: Positive for: Other (photophobia). Negative for: Vision Change Gastrointestinal: Positive for: Nausea. Negative for: Vomiting Neurological: Positive for: Headache. Negative for: Weakness, Numbness, Dizziness Physical Exam - Reviewed Nursing Documentation Reviewed: Yes Vital Signs Reviewed: Yes - Physical Exam Appears: Positive for: Non-toxic, No Acute Distress (patient noted to be using cellphone with no difficulty) Head Exam: Positive for: ATRAUMATIC, NORMAL INSPECTION, NORMOCEPHALIC Skin: Positive for: Normal Color Eye Exam: Positive for: EOMI, PERRL Neck: Positive for: Normal, Painless ROM, Supple Cardiovascular/Chest: Positive for: Regular Rate, Rhythm. Negative for: Tachycardia Respiratory: Positive for: Normal Breath Sounds. Negative for: Respiratory Distress Extremity: Positive for: Normal ROM Neurological/Psych: Positive for: Awake, Alert, Oriented (x 3). Negative for: Motor/Sensory Deficits - ECG O2 Sat by Pulse Oximetry: 99 (RA) Pulse Ox Interpretation: Normal Medical Decision Making Medical Decision Making: Impression: Migraine headache Plan: -- Toradol 30mg IM -- IV fluids -- Zofran 4mg PO 1210 Patient declines any IV treatment, IV fluids order cancelled. 13:55 Pt c/o continued pain. Morphine 2 mg IM ordered. 1540 On reassessment, patient reports improvement in pain. Instructed to follow up with PMD as well as neurologist in 2-3 days. Patient informed to return to ER if symptoms worsen. Stable for discharge home. Scribe Attestation: Documented by Fanny Jenkins acting as a scribe for Marilynn Millan MD. Provider Scribe Attestation: All medical record entries made by the Scribe were at my direction and personally dictated by me. I have reviewed the chart and agree that the record accurately reflects my personal performance of the history, physical exam, medical decision making, and the department course for this patient. I have also personally directed, reviewed, and agree with the discharge instructions and disposition. Disposition - Clinical Impression Clinical Impression: Migraine - Disposition Disposition: Routine/Home Disposition Time: 16:10 Condition: IMPROVED Additional Instructions: FOLLOW-UP WITH PMD/NEUROLOGIST WITHIN 2 DAYS FOR REEVALUATION. Instructions: Migraine Headaches in Adults Forms: [facility] (Niuean)
[2018-04-30 16:23] VITALS: BP 100/71; PULSE 61
== END 2018-04-30 15:41 | disposition home or self-care (01) ==
LOC: H.ER 10:21
DX: G43.909 Migraine, unspecified, not intractable, without status migrainosus (principal); E78.00 Pure hypercholesterolemia, unspecified; F41.9 Anxiety disorder, unspecified; Z88.0 Allergy status to penicillin
CPT/HCPCS: 96372; 99285; J1885; J2270